=== PATIENT | male | born 1970 | race Caucasian/White ===

== ENCOUNTER 2025-01-29 01:29 | Day surgery (SDC) | payer OTHER, SELFPAY ==
[2024-08-12 08:32] VITALS: BMI 41.8
--- NOTE | 2024-08-30 12:56 | SUR.PREOP ---
Pt called to cancel his procedure on 09/01 due to provider availability. Pt rescheduled to 01/29 at 730.
--- OUTSIDE RECORDS SUMMARY | 2025-01-29 01:32 | XMS_ITS | Referral Summary ---
Author Organization [facility] Address [address] [place] [address] Care Team Providers Care Feed Research Technician Name Role Phone Dustin Gonsalez MD Primary Care Provider Eloy Estrella DPM Unavailable [phone] Encounters Date Type Department Care Team Description 11/17/2024 Telephone [facility] Diabetes [facility] Endocrinology [address] [place] [phone] Maritza Prajapati NP Prior Auth (Freestyle Sandy 3 Plus Sensor) 11/13/2024 Orders Only [facility] [address] [place] [phone] ProviderSharon MD 11/13/2024 9:00 AM CDT Office Visit [facility] [address] [place] [phone] Maritza Prajapati NP Type 2 diabetes mellitus with hyperglycemia, without long-term current use of insulin (HCC) (Primary Dx); Hypertension associated with diabetes (HCC); Hyperlipidemia associated with type 2 diabetes mellitus (HCC); Class 3 severe obesity due to excess calories with serious comorbidity and body mass index (BMI) of 40.0 to 44.9 in adult (HCC) from Last 3 Months Allergies Active Allergy Reactions Criticality Noted Date Comments Penicillin G Penicillins Rash Medium 03/10/2019 Medications aspirin 81 mg chewable tablet chew 1 tablet by oral route every day 0 0 3 Active blood glucose diagnostic (ACCU-CHEK SMARTVIEW TEST STRIP) strip test 1 by finger stick BS route before meals one time 360 1 3 Active lancets (ACCU-CHEK MULTICLIX LANCET) misc test blood sugars ac meals tid and hs 360 each 1 3 Active ketoconazole (NIZORAL) 2 % cream 3 Active metFORMIN XR (GLUCOPHAGE XR) 500 mg 24 hr tabletIndication s:Type 2 diabetes mellitus with hyperglycemia, without long-term current use of insulin ([facility]) Take 4 tablets (2,000 mg total) by mouth daily with breakfast 360 tablet 3 4 03/11/20 25 Active miconazole 2 % powder Active semaglutide (OZEMPIC) 1 mg/dose (4 mg/3 mL) pen injector injectionIndicat ions:type 2 diabetes mellitus Inject 1 mg under the skin every 7 days 9 mL 5 11/14/19 26 Active dapagliflozin propanediol (Farxiga) 10 mg tabletIndication s:type 2 diabetes mellitus Take 1 tablet (10 mg total) by mouth daily 90 tablet 3 5 11/14/19 26 Active glimepiride (AMARYL) 4 mg tabletIndication s:Type 2 diabetes mellitus with hyperglycemia, without long-term current use of insulin ([facility]) Take 1 tablet (4 mg total) by mouth daily before breakfast 90 tablet 3 5 11/14/19 26 Active FreeStyle Sandy 3 Plus Sensor deviceIndication s:Type 2 diabetes mellitus with hyperglycemia, without long-term current use of insulin ([facility]) Change sensors every 14 days 6 each 3 5 Active atorvastatin (LIPITOR) 40 mg tabletIndication s:Hyperlipidemia associated with type 2 diabetes mellitus (HCC) TAKE 1 TABLET DAILY 90 tablet 3 5 Active hydroCHLOROthiaz al (MICROZIDE) 12.5 mg capsuleIndicatio ns:Hypertension associated with diabetes (HCC) TAKE 1 CAPSULE DAILY 90 capsule 3 5 Active lisinopriL (PRINIVIL,ZESTRI L) 40 mg tabletIndication s:Hypertension associated with diabetes (HCC) TAKE 1 TABLET DAILY 90 tablet 3 5 Active Active Problems Problem Noted Date Diagnosed Date Morbid (severe) obesity due to excess calories 0 03/11/2024 Class 3 severe obesity due t o excess calories with serious comorbidity and body mass index (BMI) of 40.0 to 44.9 in adult 02/13/2023 Assessment & Plan (11/13/2024 9:30 AM CDT): Discussed healthy diet and importance of regular physical activity (20- 30min/day, 150min/wk). 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 Currently taking ozempic 1mg weekly. Assessment & Plan (03/11/2024 11:45 AM CDT): Discussed healthy diet and importance of regular physical activity (20- 30min/day, 150min/wk). 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 Ozempic increased from 0.5mg to 1mg weekly. Assessment & Plan (02/13/2023 2:33 PM CDT): Discussed healthy diet and importance of regular physical activity (20- 30min/day, 150min/wk). 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 Hyperlipidemia associated with type 2 diabetes alisson salgado 03/10/2019 Assessment & Plan (11/13/2024 9:09 AM CDT): Chronic problem. Controlled on current Atorvastatin 40mg. Last lipid panel: 03/11/24 LDL=76, QK=923. Assessment & Plan (07/16/2024 9:03 AM SIGHTSEEING GUIDE): Chronic problem. Controlled on current Atorvastatin 40mg. Last lipid panel: 03/11/24 LDL=76, DY=046. Assessment & Plan (03/11/2024 11:24 AM CDT): Chronic problem. Controlled on current Atorvastatin 40mg. Last lipid panel: 02/13/23 NIR=644, CI=026. Will update labs today. Verified that he uses mychart. Aware to check results/results letter in [employer]. Will contact by phone if needed. Assessment & Plan (06/18/2023 10:18 AM CDT): Chronic problem. Controlled on current Atorvastatin 40mg. Last lipid panel: 02/13/23 XII=815, TO=009. Assessment & Plan (02/13/2023 2:16 PM CDT): Chronic problem. Controlled on current Atorvastatin 40mg. Last lipid panel: 11/23/21 LDL=72, TG=84. Will update labs today. Verified that he uses mychart. Aware to check results/results letter in [employer]. Will contact by phone if needed. Assessment & Plan (05/29/2022 3:12 PM CDT): Chronic, well controlled Low fat Low cholesterol diet Exercise Continue statin therapy with Atorvastastin Assessment & Plan (11/23/2021 9:56 AM CDT): Chronic problem. On statin therapy, no changes. Update lipid panel. Assessment & Plan (02/21/2021 3:28 PM CDT): Goal of treatment , LDL cholesterol less than 100 ( less than 70 in patients with history of heart attacks and / or strokes ) NonHDL cholesterol ( total cholesterol minus HDL cholesterol ) goal less than 130 ( less than 100 in patients with history of heart attacks and / or strokes ) Low cholesterol, low fat diet was discussed and advised. Daily exercise On statin therapy with Atorvastatin Assessment & Plan (08/04/2020 5:26 PM SIGHTSEEING GUIDE): Goal of treatment , LDL cholesterol less than 100 ( less than 70 in patients with history of heart attacks and / or strokes ) NonHDL cholesterol ( total cholesterol minus HDL cholesterol ) goal less than 130 ( less than 100 in patients with history of heart attacks and / or strokes ) Low cholesterol, low fat diet was discussed and advised. Daily exercise On statin therapy with Lipitor Assessment & Plan (09/15/2019 9:56 AM SIGHTSEEING GUIDE): Goal of treatment , LDL cholesterol less than 100 ( less than 70 in patients with history of heart attacks and / or strokes ) NonHDL cholesterol ( total cholesterol minus HDL cholesterol ) goal less than 130 ( less than 100 in patients with history of heart attacks and / or strokes ) Low cholesterol, low fat diet was discussed and advised. Daily exercise On statin therapy with Lipitor Assessment & Plan (03/10/2019 9:37 AM CDT): Goal of treatment , LDL cholesterol less than 100 ( less than 70 in patients with history of heart attacks and / or strokes ) NonHDL cholesterol ( total cholesterol minus HDL cholesterol ) goal less than 130 ( less than 100 in patients with history of heart attacks and / or strokes ) Low cholesterol, low fat diet was discussed and advised. Daily exercise On statin therapy Hypertension associated with diabetes 05/16/2017 Assessment & Plan (11/13/2024 9:09 AM CDT): Chronic problem. Controlled on current Lisinopril 40mg daily Assessment & Plan (07/16/2024 9:02 AM SIGHTSEEING GUIDE): Chronic problem. Controlled on current Lisinopril 40mg daily and HCTZ 12.5mg daily Assessment & Plan (03/11/2024 11:24 AM CDT): Chronic problem. Controlled on current Lisinopril 40mg daily and HCTZ 12.5mg daily Will update labs today. Verified that he uses [employer]. Aware to check results/results letter in [employer]. Will contact by phone if needed. Assessment & Plan (06/18/2023 10:17 AM CDT): Chronic problem. Controlled on current Lisinopril 40mg daily and HCTZ 12.5mg daily No changes at this time. Assessment & Plan (02/13/2023 2:15 PM CDT): Chronic problem. Controlled on current Lisinopril 40mg daily and HCTZ 12.5mg daily No changes at this time. Will update labs today. Verified that he uses [employer]. Aware to check results/results letter in [employer]. Will contact by phone if needed. Assessment & Plan (05/29/2022 3:12 PM CDT): Chronic, well controlled Importance of low salt diet and exercise were discussed Continue current meds Assessment & Plan (11/23/2021 9:56 AM CDT): Controlled on current medications, no changes. Assessment & Plan (02/21/2021 3:28 PM CDT): Goal blood pressure is less than 140/85 Low salt diet was discussed andd recommended The importance of daily aerobic exercise was also emphasized. Continue current meds, including DUNCAN-I or ARB, e.g. Lisinopril Assessment & Plan (08/04/2020 5:26 PM SIGHTSEEING GUIDE): Goal blood pressure is less than 140/85 Low salt diet was discussed andd recommended The importance of daily aerobic exercise was also emphasized. Continue current meds, including DUNCAN-I or ARB, e.g. Lisinopril Check microalbumin Assessment & Plan (09/15/2019 9:56 AM SIGHTSEEING GUIDE): Goal blood pressure is less than 140/85 Low salt diet recommended Daily aerobic exercise Continue current meds, including DUNCAN-I or ARB with Lisinopril. Assessment & Plan (03/10/2019 9:49 AM CDT): Goal blood pressure is less than 140/85 Low salt diet recommended Daily aerobic exercise Check microalbumin Consider restarting Lisinopril. Assessment & Plan (10/31/2017 3:22 PM SIGHTSEEING GUIDE): Goal blood pressure is less than 140/85 Low salt diet recommended Daily aerobic exercise Continue current meds, including DUNCAN-I or ARB Check microalbumin Assessment & Plan (05/16/2017 10:02 AM CDT): Controlled on current medications. Type 2 diabetes mellitus with hyperglycemia 02/24 Overview (11/29/2016): DMII WO CMP UNCNTRLD Assessment & Plan (11/13/2024 9:10 AM CDT): Chronic problem. A1c at goal and remained stable at 6.1%. Current medications: Metformin XR 2000mg with breakfast Glimepiride 4mg with breakfast Farxiga 10mg daily Ozempic 1 mg weekly UTD on labs. UTD on DM eye exam (01/31/24 no DMR) Strive for regular exercise (30min most days) and diet (get at least 4-5 servings of fruit and veggies daily, avoid processed foods, increase lean protein intake and decrease carb portions as well as fruit juices, regular soda & desserts). Watch carbs and simple sugars. Check the feet daily for skin breakdown and infection. Assessment & Plan (07/16/2024 9:18 AM SIGHTSEEING GUIDE): Chronic problem. A1c at goal and improved from 7.3% 03/11/24 to now 6.1%. Current medications: Metformin XR 2000mg with breakfast Glimepiride 4mg with breakfast Farxiga 10mg daily Ozempic 1 mg weekly UTD on labs. UTD on DM eye exam (01/31/24 no DMR) Strive for regular exercise (30min most days) and diet (get at least 4-5 servings of fruit and veggies daily, avoid processed foods, increase lean protein intake and decrease carb portions as well as fruit juices, regular soda & desserts). Watch carbs and simple sugars. Check the feet daily for skin breakdown and infection. Assessment & Plan (03/11/2024 11:44 AM CDT): Chronic problem. Not at goal but A1c remains stable at 7.3%. has been missing evening dose of metformin frequently this summer. -Ozempic increased to 1mg weekly. Aware to watch blood sugars... may need to cut glimepiride from 4mg to 2mg if noting low blood sugars after taking. If still low blood sugars--stop glimepiride altogether. -Will switch Metformin to XR. Take 4 tabs every morning; none in evening. Current medications: Metformin XR 2000mg with breakfast Glimepiride 4mg with breakfast Farxiga 10mg daily Ozempic 1 mg weekly Will update labs today. Verified that he uses mychart. Aware to check results/results letter in [employer]. Will contact by phone if needed. UTD on DM eye exam (01/31/24 no DMR) Strive for regular exercise (30min most days) and diet (get at least 4-5 servings of fruit and veggies daily, avoid processed foods, increase lean protein intake and decrease carb portions as well as fruit juices, regular soda & desserts). Watch carbs and simple sugars. Check the feet daily for skin breakdown and infection. Assessment & Plan (06/18/2023 10:48 AM CDT): Chronic problem. Not at goal &but A1c improved from 7.4% 02/13/23 to now 7.2%. Mounjaro 2.5mg sample given in place of the Trulicity (next injection next Saturday). Mounjaro 5mg sent into the pharmacy. Reviewed med SE & scheduling. Current medications: Metformin 1000mg twice daily with meals Glimepiride 4mg with breakfast Farxiga 10mg daily Mounjaro 2.5mg weekly x 4 weeks then increase to 5mg weekly. Freestyle sandy applied today. UTD on labs UTD on DM eye exam. 12/2022 at [facility] in . Letter sent to get copy of report. Strive for regular exercise (30min most days) and diet (get at least 4-5 servings of fruit and veggies daily, avoid processed foods, increase lean protein intake and decrease carb portions as well as fruit juices, regular soda & desserts). Watch carbs and simple sugars. Check the feet daily for skin breakdown and infection. Assessment & Plan (02/13/2023 2:38 PM CDT): Chronic problem. Not at goal & worsening. A1c today is 7.4%; was 6.9% 05/29/22. Current medications: Metformin 1000mg twice daily with meals Glimepiride 4mg with breakfast Farxiga 10mg daily Trulicity 4.5mg weekly Will update labs. Verified that he uses mychart. Aware to check results/results letter in [employer]. Will contact by phone if needed. Will call to schedule yearly eye exam. Strive for regular exercise (30min most days) and diet (get at least 4-5 servings of fruit and veggies daily, avoid processed foods, increase lean protein intake and decrease carb portions as well as fruit juices, regular soda & desserts). Watch carbs and simple sugars. Check the feet daily for skin breakdown and infection. Assessment & Plan (05/29/2022 3:11 PM CDT): Hba1c was Lab Results Component Value Date HGBA1C 6.9 05/29/2022 today, indicating adequate DM control Goal Hba1c and blood glucose explained Diet and exercise were advised Prevention and treatment of hyypoglcyemia were discussed with the patient Blood glucose monitoring : 1-2 x day Adjustment to medications: Continue current Assessment & Plan (11/23/2021 9:58 AM CDT): Chronic problem, higher sugars with being off SGLT2i but now back on it and have improved. He'll work on limiting ice cream. Also discussed that hypogonadism is often related to obesity and DM, and working on weight loss will help with testosterone level as well. Update routine labs today. Assessment & Plan (02/21/2021 3:28 PM CDT): Hba1c was Lab Results Component Value Date HGBA1C 6.5 02/21/2021 today, indicating Adequate ... DM control Goal blood sugars in the 120-150 range , with Hb1c under 7.0 % was explained 1800 calorie, consistent carb diet recommended. No more than 30-45 grams of carbs per meal recommended, as well as avoiding high concentrated sweet drinks . 25-45 min daily exercise, combining both aerobic and resistance exercise recommended. Prevention and treatment of hyypoglcyemia discussed. Continue current regimen with Trulicity, Invokana, Metformin and Glimepiride Assessment & Plan (08/04/2020 5:25 PM SIGHTSEEING GUIDE): Hba1c was Lab Results Component Value Date HGBA1C 7.0 08/04/2020 today, indicating adequate DM control Goals blood sugars of 120-160 and Hba1c under 7 % was explained. 1800 calorie, consistent carb diet recommended, no more than 3-45 grams of carbs per meal, avoiding concentrated sweet drinks and rapid absorption carbs. 25-45 min daily aerobic and resistance exercise recommended Prevention and treatment of hyypoglcyemia discussed. Blood glucose monitoring with fingers sticks. Increase Trulicity to 3 mg week Assessment & Plan (09/15/2019 9:55 AM SIGHTSEEING GUIDE): Hba1c was Lab Results Component Value Date HGBA1C 6.2 09/15/2019 today, indicating adequate DM control 1800 calorie, consistent carb diet recommended, no more than 3-45 grams of carbs per meal, avoiding concentrated sweet drinks and rapid absorption carbs. 25-45 min daily aerobic and resistance exercise recommended Prevention and treatment of hyypoglcyemia discussed. Medications: lower Glimeperide to 4 mg once a day Assessment & Plan (03/10/2019 9:48 AM CDT): Hba1c was Lab Results Component Value Date HGBA1C 7.1 % 03/10/2019 today, indicating adequate DM control 1800 calorie, consistent carb diet recommended 25-45 min daily exercise, combining both aerobic and resistance exercise recommended. The need to monitor blood glucose before meals and bedtime was discussed. Continue Invokana and Trulicity, as well as Metformin and Glimepiride. Prevention and treatment of hyypoglcyemia discussed. Assessment & Plan (10/31/2017 3:21 PM SIGHTSEEING GUIDE): Hba1c was Lab Results Component Value Date HGBA1C 6.6 10/31/2017 today, indicating Adequate DM control 1800 calorie, consistent carb diet recommended 30 min daily aerobic and resistance exercise recommended Prevention and treatment of hyypoglcyemia discussed. Blood glucose monitoring with fingers sticks 1-2 x day . Assessment & Plan (05/16/2017 10:02 AM CDT): A1c improved to 6.8. Restart Invokana. Continue to focus on reducing calories and increasing activity. Concept of insulin resistance discussed. Assessment & Plan (02/07/2017 9:37 AM CDT): Hba1c was 7.8 today, indicating inadequate DM control Increase Trulicy to 1.5 1500 calorie, consistent carb diet recommended 30 min daily aerobic and resistance exercise . Foot care discussed. Prevention and treatment of hypoglycemia was discussed. Resolved Problems Problem Noted Date Diagnosed Date Resolved Date Body mass index 40.0-44.9, adult ([facility]) 03/11/2024 03/11/2024 Morbid (severe) obesity due to excess calories 05/29/2022 02/13/2023 Body mass index (BMI) 45.0-49.9, adult 05/29/2022 02/13/2023 BMI 45.0-49.9, adult 02/07/2017 023 Assessment & Plan (11/23/2021 9:59 AM CDT): Healthy diet and regular exercise. Assessment & Plan (05/16/2017 10:04 AM CDT): Importance of following diet and exercising discussed. Morbid obesity due to excess calories 02/07/2017 02/13/2023 Assessment & Plan (02/07/2017 9:43 AM CDT): Diet and exercise Were discussed Mixed hyperlipidemia 02/07/2017 023 Assessment & Plan (05/16/2017 10:03 AM CDT): At goal on current medications. Assessment & Plan (02/07/2017 9:44 AM CDT): Goal of treatment , LDL cholesterol less than 100 ( less than 70 in patients with history of heart attacks and / or strokes ) NonHDL cholesterol goal less than 130 / 100 Check lipids. Continue statin therapy Low cholesterol diet, exercise advised. Social History Tobacco Use Types Packs/Day Years Used Date Smoking Tobacco: Former Smokeless Tobacco: Current Chew Alcohol Use Standard Drinks/Week Comments Yes 0 (1 standard drink = 0.6 oz pur e alcohol) PHQ-2 Answer Date Recorded PHQ-2 Total Score (If total score is 3 or more points, staff should administer the PHQ-9) 0 05/29/2022 Sex and Gender Information Value Date Recorded Sex Assigned at Not on file Legal Sex Male 11:59 PM SIGHTSEEING GUIDE Gender Identity Male 07/20/2020 1:19 PM SIGHTSEEING GUIDE Sexual Orientation Straight 07/20/2020 1: 19 PM SIGHTSEEING GUIDE Last Filed Vital Signs Vital Sign Reading Time Taken Comments Blood Pressure 102/70 11/13/2024 8:49 AM CDT Pulse 72 11/13/2024 8:49 AM CDT Temperature - - Respiratory Rate 18 11/13/2024 8:49 AM CDT Oxygen Saturation - - Inhaled Oxygen Concentration - - Weight 133.8 kg (295 lb) 11/13/2024 8:49 AM CDT Height 180 cm (5' 10.87) 11/13/2024 8:49 AM CDT Body Mass Index 41.3 11/13/2024 8:49 AM CDT Plan of Treatment Not on file Procedures Procedure Name Priority Date/Time Associated Diagnosis Comments POCT GLUCOSE Routine 11/13/2024 8:50 AM CDT Type 2 diabetes mellitus with hyperglycemia, without long-term current use of insulin (HCC) POCT HEMOGLOBIN A1C Routine 11/13/2024 8 :50 AM CDT Type 2 diabetes mellitus with hyperglycemia, without long-term current use of insulin (HCC) COMPREHENSIVE METABOLIC PANEL Routine 10/08/2024 LIPID PANEL Routine 10/08/2024 ALBUMIN CREATININE RATIO, URINE Routine 03/11/2024 11:50 AM CDT Type 2 diabetes mellitus with hyperglycemia, without long-term current use of insulin (HCC) HM DIABETES EYE EXAM Routine 01/31/2024 8:06 AM CDT PSA SCREEN Routine 11/11/2017 3:42 PM CDT from Last 3 Months or Most Recently Relevant to Health Maintenance Results * (ABNORMAL) POCT hemoglobin A1c (11/13/2024 8:50 AM CDT) Hemoglobin A1C, POC 6.1 4.0 - 5.6 % Blood 11/13/2024 8:50 AM CDT us Maritza Prajapati COORDINATOR OF HEALTH SERVICES POINT OF CARE TEST ORDERA BLES Final Result * POCT glucose (11/13/2024 8:50 AM CDT) Glucose Blood, POC 110 mg/dL Blood 11/13/2024 8:50 AM CDT Maritza Prajapati NP POINT OF CARE TEST ORDERA BLES Final Result * Lipid panel (10/08/2024) SCRIBED Cholesterol, Total 116 <200 - NA EXTERNAL LAB SCRIBED HDL 41 >=40 - NA EXTERNAL LAB SCRIBED LDL 59 NA - NA EXTERNAL LAB SCRIBED Triglycerides 78 <150 - NA EXTERNAL LAB Blood 10/08/2024 Result [facility] Historical Provider LAB BLOOD ORDERABLES Edit ed Result - Final EXTERNAL LAB * (ABNORMAL) Comprehensive metabolic panel (10/08/2024) Pathologist [facility] [place] SCRIBED Sodium 140 135 - 146 mmol/L EXTERNAL LAB SCRIBED Potassium 4.5 3.5 - 5.3 mmol/L EXTERNAL LAB SCRIBED Urea Nitrogen (BUN) 16 7 - 25 mg/dl EXTERNAL LAB SCRIBED Creatinine 0.82 0.70 - 1.30 mg/dl EXTERNAL LAB SCRIBED Glucose 130(A) 65 - 99 mg/dl EXTERNAL LAB SCRIBED Calcium 9.3 8.6 - 10.3 mg/dl EXTERNAL LAB SCRIBED Bilirubin 0.6 0.2 - 1.2 mg/dl EXTERNAL LAB SCRIBED Alkaline Phosphatase 70 35 - 144 Units/L EXTERNAL LAB SCRIBED Alanine Transaminase (ALT) 17 9 - 46 Units/L EXTERNAL LAB SCRIBED Aspartate Transaminase (AST) 14 10 - 35 Units/L EXTERNAL LAB SCRIBED eGFR in NonAfrican Panamanian 105 >=60 - NA EXTERNAL LAB Blood 10/08/2024 Historical Provider LAB BLOOD ORDERABLES Edit ed Result - Final EXTERNAL LAB * Albumin Creatinine Ratio, Urine (03/11/2024 11:50 AM CDT) Albumin Ur 12.1 mg/L Comment: Interpretive Data No reference range established. Current interpretive data was last revised 2019. Creatinine Ur 179.4 mg/dL [facility] Comment: Interpretive Data No reference range established. Current interpretive data was last revised 2019. Albumin Creatinine Ratio, Ur 7 1 - 29 mg/g [facility] Urine 03/11/2024 11:5 0 AM CDT 03/11/2024 2:55 PM CDT Maritza Prajapati COORDINATOR OF HEALTH SERVICES LAB URINE ORDERABLES Emelia l Result Performing Organization Address City/[facility] Co de Phone Number [facility] [id number] [place] [address] * DIABETES EYE EXAM (01/31/2024 8:06 AM CDT) Historical Provider HEALTH MAINTENANCE Edited Result - Final * PSA screen (11/11/2017 3:42 PM CDT) SCRIBED PSA, Serum 0.90 0.00 - 4.00 EXTERNAL LAB Blood specimen (specimen) Historical Provider LAB BLOOD ORDERABLES Edit ed Result - Final Performing Organization Address City/State/[facility] Co de Phone Number EXTERNAL LAB from Last 3 Months or Most Recently Relevant to Health Maintenance Insurance [facility] HMO/PPO Address: [place] [id number] [place] [id number] [facility] HMO/PPO Address: [id number] [place] [address] Care Teams Feed Research Technician Relationship Specialty Start Date End Date Dustin Gonsalez MD PCP - General 03/18/13 Eloy Estrella DPM [id number] [place] [address] Podiatry 03/01/23
--- OUTSIDE RECORDS SUMMARY | 2025-01-29 01:32 | XMS_ITS | Clinical Summary ---
Author Organization [facility] Address [address] [place] [address] Care Team Providers Care Media Planner / Buyer Name Role Phone Dustin Gonsalez MD Primary Care Provider [phone] Source Comments [facility],non-owned Affiliates and Associated Physician Practices is amultiple site organization consisting of ambulatory clinics and hospital sitesin [place] and [place]. This disclosure is being madepursuant to the Care Everywhere program and may not contain all information available regarding this patient. Last updated 18.[facility] Allergies No known active allergies Medications * Be aware that medications may not be up to date on this document. Alwaysverify current medications with the patient. glimepiride (AMARYL) 4 MG tablet Take 4 mg by mouth daily with breakfast. Active metFORMIN (GLUCOPHAGE) 1000 MG tablet Take 1,000 mg by mouth 2 times daily with breakfast and dinner. Active atorvastatin (LIPITOR) 40 MG tablet Take 40 mg by mouth at bedtime. Active hydrochlorothia zide (MICROZIDE) 12.5 MG capsule Take 12.5 mg by mouth once daily. Active lisinopril (PRINIVIL; ZESTRIL) 40 MG tablet Take 40 mg by mouth once daily. Active vitamin D, ergocalciferol, (DRISDOL) 38966 UNIT capsuleIndicati ons:Vitamin d deficiency Take 1 Cap by mouth every 7 days. 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 Gender Identity Not on file Sexual Orientation Not on file Last Filed Vital Signs Vital Sign Reading Time Taken Comments Blood Pressure 151/89 03/01/2011 11:00 AM CDT Pulse 95 03/01/2011 11:00 AM CDT Temperature 36.6 C (97.8 F) 12/05/2009 2:48 PM CDT Respiratory Rate 20 03/01/2011 11:00 AM CDT Oxygen Saturation - - Inhaled Oxygen Concentration - - Weight 163.7 kg (361 lb) 12/06/2011 11:00 AM CDT Height 182.9 cm (6') 12/06/2011 11:00 AM CDT Body Mass Index 48.96 12/06/2011 11:00 AM CDT Plan of Treatment Health Maintenance Due Date Last Done Comments COLOGUARD (AGES 45-75) - COL ON CA SCREENING 1971 COLON MONITORING 1971 COLONOSCOPY - COLON CA SCREENING 1971 CT COLONOGRAPHY - COLON CA SCREENING 1971 Colorectal Cancer Screening 1971 FIT - COLON CA SCREENING 1971 FLEX SIG - COLON CA SCREENING 1971 HIV SCREENING 1986 HEPATITIS C SCREENING 05/19/1989 DTAP/TDAP/TD VACCINES (1 - Tdap) 1990 HEPATITIS B VACCINE (1 of 3 - 19+ 3-dose series) 1990 PNEUMOCOCCAL VACCINE 50+ (1 of 1 - PCV) 2021 ZOSTER VACCINE (1 of 2) 2021 COVID-19 VACCINE ( - 2023-2 5 season) 2024 DEPRESSION SCREENING 08/26/2024 INFLUENZA VACCINE (Season Ended) 2025 HIB VACCINE Aged Out No longer eligi ble based on patient's age to complete this topic HPV VACCINE Aged Out No longer eligi ble based on patient's age to complete this topic MENINGOCOCCAL (Group B) VACC INE SHARED DECISION-MAKING Aged Out No longer eligibl e based on patient's age to complete this topic MENINGOCOCCAL GROUPS A/C/Y/W VACCINE Aged Out No longer eligible b ased on patient's age to complete this topic Care Teams Media Planner / Buyer Relationship Specialty Start Date End Date Dustin Gonsalez MD [address] [place] [phone] PCP - General 07/26/08
--- OUTSIDE RECORDS SUMMARY | 2025-01-29 01:32 | XMS_ITS | Clinical Summary ---
Author Organization [facility] Address [address] [place] [address] Care Team Providers Care Psychology Clinician Name Role Phone Dustin Gonsalez MD Primary Care Provider Eloy Estrella DPM Unavailable Allergies Active Allergy Reactions Criticality Noted Date Comments Penicillin G Penicillins Rash Medium 03/10/2019 Medications aspirin 81 mg chewable tablet chew 1 tablet by oral route every day 0 0 3 Active blood glucose diagnostic (ACCU-CHEK SMARTVIEW TEST STRIP) strip test 1 by finger stick BS route before meals one time day 360 1 3 Active lancets (ACCU-CHEK MULTICLIX LANCET) misc test blood sugars ac meals tid and hs 360 each 1 3 Active ketoconazole (NIZORAL) 2 % cream 3 Active metFORMIN XR (GLUCOPHAGE XR) 500 mg 24 hr tabletIndication s:Type 2 diabetes mellitus with hyperglycemia, without long-term current use of insulin (HCC) Take 4 tablets (2,000 mg total) by mouth daily with breakfast 360 tablet 3 4 03/11/20 25 Active miconazole 2 % powder Active semaglutide (OZEMPIC) 1 mg/dose (4 mg/3 mL) pen injector injectionIndicat ions:type 2 diabetes mellitus Inject 1 mg under the skin every 7 days 9 mL 3 5 11/14/19 26 Active dapagliflozin propanediol (Farxiga) 10 mg tabletIndication s:type 2 diabetes mellitus Take 1 tablet (10 mg total) by mouth daily 90 tablet 3 5 11/14/19 26 Active glimepiride (AMARYL) 4 mg tabletIndication s:Type 2 diabetes mellitus with hyperglycemia, without long-term current use of insulin (HCC) Take 1 tablet (4 mg total) by mouth daily before breakfast 90 tablet 3 5 11/14/19 26 Active FreeStyle Sandy 3 Plus Sensor deviceIndication s:Type 2 diabetes mellitus with hyperglycemia, without long-term current use of insulin (HCC) Change sensors every 14 days 6 each [...] Atorvastatin 40mg. Last lipid panel: 03/11/24 LDL=76, QJ=821. Assessment & Plan (07/16/2024 9:03 AM CAMPUS ADMINISTRATIVE ASSISTANT): Chronic problem. Controlled on current Atorvastatin 40mg. Last lipid panel: 03/11/24 LDL=76, ES=441. Assessment & Plan (03/11/2024 11:24 AM CDT): Chronic problem. Controlled on current Atorvastatin 40mg. Last lipid panel: 02/13/23 PZM=511, SS=402. Will update labs today. Verified that he uses mychart. Aware to check results/results letter in [employer]. Will contact by phone if needed. Assessment & Plan (06/18/2023 10:18 AM CDT): Chronic problem. Controlled on current Atorvastatin 40mg. Last lipid panel: 02/13/23 JJO=595, LD=451. Assessment & Plan (02/13/2023 2:16 PM CDT): Chronic problem. Controlled on current Atorvastatin 40mg. Last lipid panel: 11/23/21 LDL=72, TG=84. Will update labs today. Verified that he uses mychart. Aware to check results/results letter in [employer]. Will contact by phone if needed. Assessment [...] Atorvastatin Assessment & Plan (08/04/2020 5:26 PM CAMPUS ADMINISTRATIVE ASSISTANT): Goal of treatment , LDL cholesterol less [...] Lipitor Assessment & Plan (09/15/2019 9:56 AM CAMPUS ADMINISTRATIVE ASSISTANT): Goal of treatment , LDL cholesterol less [...] daily Assessment & Plan (07/16/2024 9:02 AM CAMPUS ADMINISTRATIVE ASSISTANT): Chronic problem. Controlled on current Lisinopril 40mg daily and HCTZ 12.5mg daily Assessment & Plan (03/11/2024 11:24 AM CDT): Chronic problem. Controlled on current Lisinopril 40mg daily and HCTZ 12.5mg daily Will update labs today. Verified that he uses [employer]. Aware to check results/results letter in [employer]. Will contact by phone if needed. Assessment & Plan (06/18/2023 10:17 AM CDT): Chronic problem. Controlled on current Lisinopril 40mg daily and HCTZ 12.5mg daily No changes at this time. Assessment & Plan (02/13/2023 2:15 PM CDT): Chronic problem. Controlled on current Lisinopril 40mg daily and HCTZ 12.5mg daily No changes at this time. Will update labs today. Verified that he uses [employer]. Aware to check results/results letter in [employer]. Will contact by phone if needed. Assessment [...] Lisinopril Assessment & Plan (08/04/2020 5:26 PM CAMPUS ADMINISTRATIVE ASSISTANT): Goal blood pressure is less than 140/85 Low salt diet was discussed andd recommended The importance of daily aerobic exercise was also emphasized. Continue current meds, including DUNCAN-I or ARB, e.g. Lisinopril Check microalbumin Assessment & Plan (09/15/2019 9:56 AM CAMPUS ADMINISTRATIVE ASSISTANT): Goal blood pressure is less than 140/85 Low salt diet recommended Daily aerobic exercise Continue current meds, including DUNCAN-I or ARB with Lisinopril. Assessment & Plan (03/10/2019 9:49 AM CDT): Goal blood pressure is less than 140/85 Low salt diet recommended Daily aerobic exercise Check microalbumin Consider restarting Lisinopril. Assessment & Plan (10/31/2017 3:22 PM CAMPUS ADMINISTRATIVE ASSISTANT): Goal blood pressure is less than 140/85 [...] infection. Assessment & Plan (07/16/2024 9:18 AM CAMPUS ADMINISTRATIVE ASSISTANT): Chronic problem. A1c at goal and improved [...] update labs today. Verified that he uses [employer]. Aware to check results/results letter in [employer]. Will contact by phone if needed. UTD [...] [facility] . Letter sent to get copy [...] Will update labs. Verified that he uses [employer]. Aware to check results/results letter in [employer]. Will contact by phone if needed. Will [...] Glimepiride Assessment & Plan (08/04/2020 5:25 PM CAMPUS ADMINISTRATIVE ASSISTANT): Hba1c was Lab Results Component Value Date [...] week Assessment & Plan (09/15/2019 9:55 AM CAMPUS ADMINISTRATIVE ASSISTANT): Hba1c was Lab Results Component Value Date [...] discussed. Assessment & Plan (10/31/2017 3:21 PM CAMPUS ADMINISTRATIVE ASSISTANT): Hba1c was Lab Results Component Value Date [...] Resolved Date Body mass index 40.0-44.9, adult ([facility]) 03/11/2024 03/11/2024 Morbid (severe) obesity [...] statin therapy Low cholesterol diet, exercise advised. Encounters Date Type Department Care Team Description 11/17/2024 Telephone [facility] Diabetes and Endocrinology [address] [place] [address] [phone] Maritza Prajapati NP Prior Auth (PTS [employer] Sandy 3 Plus Sensor) 11/13/2024 9:00 AM CDT Office Visit [facility] Diabetes and Endocrinology [address] [place] [address] [phone] Maritza Prajapati NP Type 2 diabetes mellitus with hyperglycemia, without long-term current use of insulin (HCC) (Primary Dx); Hypertension associated with diabetes (HCC); Hyperlipidemia associated with type 2 diabetes mellitus (HCC); Class 3 severe obesity due to excess calories with serious comorbidity and body mass index (BMI) of 40.0 to 44.9 in adult (HCC) 11/13/2024 Orders Only [facility] Diabetes and Endocrinology [address] [place] [address] [phone] Provider, MD Sharon from Last 3 Months Surgical History Surgery Date Site/Laterality Comments OTHER SURGICAL HISTORY gastric banding HERNIA REPAIR Hernia repair TONSILLECTOMY Tonsillectomy VASECTOMY Vasectomy Medical History Medical History Date Comments Diabetes mellitus (HCC) Diabetes Hyperlipidemia Hyperlipidemia Hypertension Hypertension Hypogonadism male Family History Medical History Relation Name Comments Diabetes Other 1 Family history of Diabetes mellitus; Heart disease Other 2 Family history of Heart disease; Cancer Other 3 Family history of Cancer; Hyperlipidemia Other 4 Family histor y of Hyperlipidemia; Hypertension Other 5 Family history of Hypertension; Relation Name Status Comments Other 1 Other 2 Other 3 Other 4 Other 5 Social History Tobacco Use Types Packs/Day Years [...] on file Legal Sex Male 11:59 PM CAMPUS ADMINISTRATIVE ASSISTANT Gender Identity Male 07/20/2020 1:19 PM CAMPUS ADMINISTRATIVE ASSISTANT Sexual Orientation Straight 07/20/2020 1: 19 PM CAMPUS ADMINISTRATIVE ASSISTANT Obstetrics History Last Filed Vital Signs Vital Sign Reading [...] 11/13/2024 8:49 AM CDT Plan of Treatment Health Maintenance Due Date Last Done Comments Colon Cancer Screening-Colonoscopy 1971 Hepatitis C Screening 1971 DTaP/Tdap/Td Vaccine (1 - Tdap) 1982 Hepatitis B Screening 1989 Regular Well Visit/Exam 18-64 1989 Pneumococcal vaccine <65 (1 of 2 - PCV) 1990 Prostate Cancer Screening-PSA 11/12/2019 11/11/2017 Zoster Vaccine (1 of 2) 2021 Depression Screening 05/29/2023 05/29/2022, 11/23/2021, 02/21/2021, Additional history exists Covid-19 Vaccine (4 - 2023-2 5 season) 2024 07/07/2021, 10/25/2020, 09/22/2020 Albumin Creatinine Ratio, Urine 03/11/2025 03/11/2024, 02/13/2023, 11/23/2021, Additional history exists Foot Exam 03/11/2025 03/11/2024, 01/25, 11/23/2021, Additional history exists Influenza Vaccine (Season Ended) 2025 09/10/2022, 07/07/2021, 06/09/2020, Additional history exists Hemoglobin A1C 05/16/2025 11/13/2024, 09/26, 07/16/2024, Additional history exists Lipid Panel 10/08/2025 10/08/2024, 02/23, 02/13/2023, Additional history exists eGFR 10/08/2025 10/08/2024, 02/23, 02/13/2023, Additional history exists Dilated Eye Exam 01/30/2026 01/31/2024, , 02/01/2021, Additional history exists Procedures Procedure Name Priority Date/Time Associated Diagnosis [...] 11/13/2024 8:50 AM CDT us Maritza Prajapati DENTAL CERAMIST ASSISTANT POINT OF CARE TEST ORDERA BLES Final Result * POCT glucose (11/13/2024 8:50 AM CDT) Glucose Blood, POC 110 mg/dL Blood 11/13/2024 8:50 AM CDT Maritza Prajapati DENTAL CERAMIST ASSISTANT POINT OF CARE TEST ORDERA BLES Final Result * Lipid panel (10/08/2024) SCRIBED Cholesterol, Total 116 <200 - NA EXTERNAL LAB SCRIBED HDL 41 >=40 - NA EXTERNAL LAB SCRIBED LDL 59 NA - NA EXTERNAL LAB SCRIBED Triglycerides 78 <150 - NA EXTERNAL LAB Blood 10/08/2024 Historical Provider LAB BLOOD ORDERABLES Edit ed Result - Final EXTERNAL LAB * (ABNORMAL) Comprehensive metabolic panel (10/08/2024) SCRIBED Sodium 140 135 - 146 mmol/L [...] Units/L EXTERNAL LAB SCRIBED eGFR in NonAfrican Belgian 105 >=60 - NA EXTERNAL LAB Blood 10/08/2024 Historical Provider LAB BLOOD ORDERABLES Edit ed Result - Final EXTERNAL LAB * Albumin Creatinine Ratio, Urine (03/11/2024 11:50 AM CDT) Albumin Ur 12.1 mg/L Comment: Interpretive Data No reference range established. Current interpretive data was last revised 2019. Creatinine Ur 179.4 mg/dL [facility] Comment: Interpretive Data No reference range established. Current interpretive data was last revised 2019. Albumin Creatinine Ratio, Ur 7 1 - 29 mg/g [facility] Urine 03/11/2024 11:5 0 AM CDT 03/11/2024 2:55 PM CDT Maritza Prajapati DENTAL CERAMIST ASSISTANT LAB URINE ORDERABLES Emelia l Result Performing Organization Address [facility] Co de Phone Number [facility] [id number] [place] [address] * DIABETES EYE EXAM (01/31/2024 8:06 AM CDT) Historical Provider HEALTH MAINTENANCE Edited Result - Final * PSA screen (11/11/2017 3:42 PM CDT) SCRIBED PSA, Serum 0.90 0.00 - 4.00 EXTERNAL LAB Blood specimen (specimen) Historical Provider LAB BLOOD ORDERABLES Edit ed Result - Final Performing Organization Address City/State/[facility] Co de Phone Number EXTERNAL LAB from Last 3 Months or Most Recently Relevant to Health Maintenance Insurance [facility] [employer] [facility] HMO/PPO Address: [place] [address] [facility] [employer] [facility] H[facility]/PPO Address: [place] [address] Care Teams Psychology Clinician Relationship Specialty Start Date End Date Dustin Gonsalez MD PCP - General 03/18/13 Eloy Estrella DPM [address] [place] [address] Podiatry 03/01/23
--- OUTSIDE RECORDS SUMMARY | 2025-01-29 01:32 | XMS_ITS | Data Portability ---
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 Quill Machine Tender variances may occur. Despite proofreading, typographical errors may occur. Not available 04/02/2023 09:25:05 07/02/2023 07/02/2023 This note is dictated and transcribed by [employer]. Quill Machine Tender variances may occur. Despite proofreading, typographical errors may occur. Not available 07/02/2023 09:32:12 Plan of Treatment Reminders Order Date Submit Date Provider Last Modified By Organization Details Last Modified Time Details Appointments None recorded. Lab HbA1c (hemoglobin A1c), blood 2024 025 [facility] Outpatient Lab, [address] [place], [address], 5 03:56:48 lipid panel, serum 2024 025 [facility] Outpatient Lab, [address] [place], [address], 5 03:56:42 CMP, serum or plasma 2024 025 [facility] Outpatient Lab, [address] [place], [address], 5 03:56:43 TSH, serum or plasma 2024 025 [facility] Outpatient Lab, [address] [place], [address], 5 03:56:47 T4, free, serum 2024 025 [facility] Out[facility] Lab, [address] [place], [address], 5 03:56:46 CBC w/ auto diff 2024 025 [facility] Outpatient Lab, [address] [place], [address], 5 03:56:44 lipid panel, serum [id number] [place] [address] Outpatient Lab, [address] [place], [address], 4 17:36:30 CMP, serum or plasma [id number] [place] [address] Outpatient Lab, [address] [place] [address], [address], 4 17:36:30 PSA, serum or plasma [id number] [place] [address] Outpatient Lab, [address] [place], [address], 4 17:36:30 HbA1c (hemoglobin A1c), blood [id number] [place] [address] Outpatient Lab, [address] [place], [address], 4 12:19:22 microalbumi n/creatinin e, mass ratio, urine [id number] [place] [address] Outpatient Lab, [address] [place], [address], 4 12:19:23 lipid panel, serum [id number] [place] [address] Outpatient Lab, [address] [place], [address], 4 12:19:22 CMP, serum or plasma [id number] [place] [address] Outpatient Lab, [address] [place], [address], 4 12:19:22 T4, free, serum [id number] [place] [address] Outpatient Lab, [address] [place], [address], 4 12:19:22 TSH, serum or plasma [id number] [place] [address] Outpatient Lab, [address] [place], [address], 4 12:19:22 PSA, serum or plasma [id number] [place] [address] Outpatient Lab, [address] [place], [address], 4 12:19:23 CBC w/ auto diff [email or web address] Outpatient Lab, [address] [place], [address], 4 12:19:21 Referral None recorded. Procedures None recorded. Surgeries None recorded. Imaging None recorded. Medication Orders Antifungal (miconazole ) 2 % topical powder 2022 023 [id number], [address], [place], [place], [id number], 3 09:28:55 terbinafine HCl 250 mg tablet [address] [facility], [address], [id number], 5 10:28:35 ketoconazol e 2 % topical cream 2022 023 [facility], [address], [place], [place], [id number], 3 09:26:20 Patient TargetsNo targets recorded. Patient Instructions Encounter Date Encounter Id Patient Instructions Last Modified By Organization Details Last Modified Time 10/07/2023 [id number] Central hypertension-hyperl ipidemia- type 2 diabetes clinically stable. Will continue on current medications check blood work consisting of CBC, CMP, lipid, thyroid PSA, hemoglobin A1c and microalbumin. Continue on current Rx follow-up in six months Portions of the record may have been created with voice recognition software. Occasional wrong-word or s ound-a-like substitutions may have occurred due to the inherent limitations of voice recognition software. Read the chart carefully and recognize, using context, where substitutions have occurred. [email or web address] Not available 10/07/2023 16:15:03 04/06/2024 [id number] risk assessment* [email or web address] Not availabl e 04/06/2024 16:28:11 INFLUENZA VACCIN E Recommended today, but patient declined Ordered Pa nallelynt will get at local pharmacy/health department Patient has egg allergy Next vaccination to be given fall Next vaccination to be given fall _2023___ TD/TDAP Patient will get at local pharmacy/health department PNEUMONIA VACCINE Recommended at age 66 SHINGLES Patient will get at local pharmacy/health department PSA Ordered No screening necessary patient is up to date Not indicated until age 50 recommended COLORECTAL SCREENING Recommended today, but patient declined Ordered Co lonoscopy declined. Cologuard ordered No screening necessary until age 45 No screening necessary patient is up to date Recommended today DEPRESSION SCREENING Negative BMI Overweight try to lose 10% of your body weight NUTRITION Heart Healthy Diet Recommendation of a 1500 caloric intake for weight loss is advised Diabetic Diet Renal Diet DASH Diet Continue healthy eating & exercise Eat Heart Healthy Diet PHYSICAL ACTIVITY Need more exercise/physical activity ALCOHOL USE Occasional/Social Use TOBACCO USE non smoker LUNG CANCER SCREENING Non Smoker-not indicated SEXUALLY ACTIVE HEPATITIS C SCREENING Not indicated GLUCOSE SCREENING Ordered Not needed Known Diabetic recommende d LIPID SCREENING Ordered Not needed Diagnosis of Hyperlipidemia saul mmended [email or web address] Not available 04/06/2024 16:13:07 Wellness evaluat ion risk assessment stable. Follow-up for essential hypertension, hyperlipidemia, type 2 diabetes and morbid obesity. Clinically stable. Will continue on current medications at this juncture. No interval complaints any new problems. Will check a PSA, lipid and CMP. Will also set up for colonoscopy. Continue on current Rx and follow-up in six months. Additional Orders - Directives - Recommendations 1. PSA 0.68 NG/ML N 2. Colonoscopy Next Appointment: 6 Months Approximate Date: 10/03/2024 Portions of the record may have been created with voice recognition software. Occasional wrong-word or s ound-a-like substitutions may have occurred due to the inherent limitations of voice recognition software. Read the chart carefully and recognize, using context, where substitutions have occurred. [email or web address] Not available 04/06/2024 16:27:57 10/05/2024 [id number] Follow-up for hypertension, hyperlipidemia, type 2 diabetes and morbid obesity. Plan to check blood work consisting of CBC, CMP, lipid, thyroid, hemoglobin A1c. Already scheduled for colonoscopy follow-up. Continue on current Rx follow-up in six months Additional Orders - Directives - Recommendations 1. Colonoscopy Already scheduled for January Follow Up: 6 Months Approximate Date: 04/03/2025 Portions of record are template driven. When necessary additional context will be provided. Additionally some portions have been created with voice recognition software. Occasional wrong-word or s ound-a-like substitutions may have occurred due to the inherent limitations of voice recognition software. Read the chart carefully and recognize, using context, where substitutions may have occurred. Created: Dustin Gonsalez M.D. 10.05.2024 09:40 AM [email or web address] Not available 10/05/2024 10:40:27 Reason for Referral None Reported. Results Created Date Observation Date Name Description Value Unit Range Abnormal Flag Note LastModifiedBy Organization Detail LastModifiedTime 07/01/2007/01/2023 HEPAT IC/LI FRANCISCO PANEL alkaline phosphatase 60 U/L 38-126 Not Available [facility] (Lab) [address] [place], [address], 07/01/2023 18:27:35 07/01/2007/01/2023 HEPAT IC/LI FRANCISCO PANEL alanine aminotransfe rase 24 U/L 0-50 Not Available [facility] (Lab) [address] [place], [address], 07/01/2023 18:27:35 07/01/20 23 07/01/2023 HEPAT IC/LI FRANCISCO PANEL aspartate aminotransfe rase 26 U/L 15-46 Not Available [facility] (Lab) [address] [place], [address], 07/01/2023 18:27:35 07/01/20 23 07/01/2023 HEPAT IC/LI FRANCISCO PANEL bilirubin, total 0.60 mg/dL 0.20-1 .30 Not Available [facility] (Lab) [address] [place], [address], 07/01/2023 18:27:35 07/01/20 23 07/01/2023 HEPAT IC/LI FRANCISCO PANEL bilirubin, conjugated (direct) 0.00 mg/dL 0.00-0 .30 Not Available [facility] (Lab) [address] [place], [address], 07/01/2023 18:27:35 07/01/20 23 07/01/2023 HEPAT IC/LI FRANCISCO PANEL biliurubin,u ncong. (indirect) 0.30 mg/dL 0.00-1 .1 Not Available [facility] (Lab) [address] [place], [address], 07/01/2023 18:27:35 07/01/20 23 07/01/2023 HEPAT IC/LI FRANCISCO PANEL total protein 6.7 g/dL 6.3-8. 2 Not Available [facility] (Lab) [address] [place], [address], 07/01/2023 18:27:35 07/01/20 23 07/01/2023 HEPAT IC/LI FRANCISCO PANEL albumin 4.1 g/dL 3.4-5. 0 Not Available [facility] (Lab) [address] [place], [address], 07/01/2023 18:27:35 07/01/20 23 07/01/2023 HEPAT IC/LI FRANCISCO PANEL globulin 2.6 g/dL 2.6-4. 2 Not Available [facility] (Lab) [address] [place], [address], 07/01/2023 18:27:35 07/01/20 23 07/01/2023 HEPAT IC/LI FRANCISCO PANEL A/G ratio 1.6 ratio 1.0-2. 0 Not Available [facility] (Lab) [address] [place], [address], 07/01/2023 18:27:35 04/20/20 24 04/20/2024 PSA, TOTAL PSA, total 0.90 NG/mL 0.00-4 .00 Not Available [facility] (Lab) [address] [place], [address], 04/20/2024 17:36:32 10/08/19 25 10/09/2024 LIPID PANEL , STAND THAI cholesterol, total 116 mg/dL <200 normal Not Available [facility] [address] [place], [address], 10/09/2024 03:56:41 10/08/19 25 10/09/2024 LIPID PANEL , STAND THAI HDL cholesterol 41 mg/dL > or = 40 normal Not Available [facility] [place] [address] [place], [address], 10/09/2024 03:56:41 10/08/19 25 10/09/2024 LIPID PANEL , STAND THAI triglyceride s 78 mg/dL <150 normal Not Available [facility] [place] [address] [place], [address], 10/09/2024 03:56:41 10/08/19 25 10/09/2024 LIPID PANEL , STAND THAI LDL-choleste rol 59 mg/dL _(aristeo c) normal Refer ence range : <100 Chloe able range <100 mg/dL for prima ry preve ntion ; <70 mg/dL for patie nts with CHD or diabe tic patie nts with > or = 2 CHD risk facto rs. LDL-C is now calcu lated using the Rand n-Hop kins calcu gabrielle n, which is a valid ated novel metho d provi ding michael r accur acy than the Fried nenita equat ion in the estim ation of LDL-C . Rand geller SS et al. AUR[place]A. 2013; 310(1 9): 2061- 2068 (http ://ed ucati on.DFMSim ayahCommerce Resources. com/f aq/FA Q164) Not Available [facility] [address] [place], [address], 10/09/2024 03:56:41 10/08/1910/09/2024 LIPID PANEL , STAND THAI chol/HDLC ratio 2.8 (calc ) <5.0 normal Not Available [facility] [address] [place], [address], 10/09/2024 03:56:41 10/08/1910/09/2024 LIPID PANEL , STAND THAI non HDL cholesterol 75 mg/dL _(aristeo c) <130 normal For patie nts with diabe claudy plus 1 major ASCVD risk facto r, treat ing to a non-H DL-C goal of <100 mg/dL (LDL- C of <70 mg/dL ) is consi dered a thera peuti c optio n. Not Available [facility] [address] [place], [address], 10/09/2024 03:56:41 10/08/1910/09/2024 COMPR EHENS PATY METAB OLIC PANEL glucose 130 mg/dL 65-99 high Fasti ng refer ence inter erwin For someo ne witho ut known diabe claudy, a gluco se value >125 mg/dL indic ates that they may have diabe claudy and this shoul d be confi rmed with a follo w-up test. Not Available [address], [address], 10/09/2024 03:56:43 10/08/19 25 10/09/2024 COMPR EHENS PATY METAB OLIC PANEL urea nitrogen (BUN) 16 mg/dL 7-25 normal Not Available [address], [address], 10/09/2024 03:56:43 10/08/19 25 10/09/2024 COMPR EHENS PATY METAB OLIC PANEL creatinine 0.82 mg/dL 0.70-1 .30 normal Not Available [address], [address], 10/09/2024 03:56:43 10/08/19 25 10/09/2024 COMPR EHENS PATY METAB OLIC PANEL eGFR 105 mL/mi n/1.7 3m2 > or = 60 normal Not Available [address], [address], 10/09/2024 03:56:43 10/08/19 25 10/09/2024 COMPR EHENS PATY METAB OLIC PANEL BUN/creatini ne ratio SEE NOTE: (calc ) 6-22 Not Repor john: BUN and Creat inine are withi n refer ence range . Not Available [address], [address], 10/09/2024 03:56:43 10/08/19 25 10/09/2024 COMPR EHENS PATY METAB OLIC PANEL sodium 140 mmol/ L 135-14 6 normal Not Available [address], [address], 10/09/2024 03:56:43 10/08/19 25 10/09/2024 COMPR EHENS PAYT METAB OLIC PANEL potassium 4.5 mmol/ L 3.5-5. 3 normal Not Available [address], [address], 10/09/2024 03:56:43 10/08/19 25 10/09/2024 COMPR EHENS PATY METAB OLIC PANEL chloride 104 mmol/ L 98-110 normal Not Available [address], [address], 10/09/2024 03:56:43 10/08/19 25 10/09/2024 COMPR EHENS PATY METAB OLIC PANEL carbon dioxide 29 mmol/ L 20-32 normal Not Available [address], [address], 10/09/2024 03:56:43 10/08/19 25 10/09/2024 COMPR EHENS PATY METAB OLIC PANEL calcium 9.3 mg/dL 8.6-10 .3 normal Not Available [address], [address], 10/09/2024 03:56:43 10/08/19 25 10/09/2024 COMPR EHENS PATY METAB OLIC PANEL protein, total 6.5 g/dL 6.1-8. 1 normal Not Available [address], [address], 10/09/2024 03:56:43 10/08/19 25 10/09/2024 COMPR EHENS PATY METAB OLIC PANEL albumin 4.0 g/dL 3.6-5. 1 normal Not Available [address], [address], 10/09/2024 03:56:43 10/08/19 25 10/09/2024 COMPR EHENS PATY METAB OLIC PANEL globulin 2.5 g/dL_ (calc ) 1.9-3. 7 normal Not Available [address], [address], 10/09/2024 03:56:43 10/08/19 25 10/09/2024 COMPR EHENS PATY METAB OLIC PANEL albumin/glob ulin ratio 1.6 (calc ) 1.0-2. 5 normal Not Available [address], [address], 10/09/2024 03:56:43 10/08/19 25 10/09/2024 COMPR EHENS PATY METAB OLIC PANEL bilirubin, total 0.6 mg/dL 0.2-1. 2 normal Not Available [address], [address], 10/09/2024 03:56:43 10/08/19 25 10/09/2024 COMPR EHENS PATY METAB OLIC PANEL alkaline phosphatase 70 U/L 35-144 normal Not Available [address], [address], 10/09/2024 03:56:43 10/08/19 25 10/09/2024 COMPR EHENS PATY METAB OLIC PANEL AST 14 U/L 10-35 normal Not Available [address], [address], 10/09/2024 03:56:43 10/08/19 25 10/09/2024 COMPR EHENS PATY METAB OLIC PANEL ALT 17 U/L 9-46 normal Not Available [address], [address], 10/09/2024 03:56:43 10/08/19 25 10/09/2024 CBC (INCL UDES DIFF/ PLT) white blood cell count 6.9 thous and/u L 3.8-10 .8 normal Not Available [address], [address], 10/09/2024 03:56:44 10/08/19 25 10/09/2024 CBC (INCL UDES DIFF/ PLT) red blood cell count 5.77 ayala on/uL 4.20-5 .80 normal Not Available [address], [address], 10/09/2024 03:56:44 10/08/19 25 10/09/2024 CBC (INCL UDES DIFF/ PLT) hemoglobin 15.0 g/dL 13.2-1 7.1 normal Not Available [address], [address], 10/09/2024 03:56:44 10/08/1910/09/2024 CBC (INCL UDES DIFF/ PLT) hematocrit 46.9 % 38.5-5 0.0 normal Not Available [address], [address], 10/09/2024 03:56:44 10/08/19 25 10/09/2024 CBC (INCL UDES DIFF/ PLT) MCV 81.3 fL 80.0-1 00.0 normal Not Available [address], [address], 10/09/2024 03:56:44 10/08/19 25 10/09/2024 CBC (INCL UDES DIFF/ PLT) MCH 26.0 pg 27.0-3 3.0 low Not Available [address], [address], 10/09/2024 03:56:44 10/08/1910/09/2024 CBC (INCL UDES DIFF/ PLT) MCHC 32.0 g/dL 32.0-3 6.0 normal For adult s, a sligh t decre ase in the calcu lated MCHC value (in the range of 30 to 32 g/dL) is most likel y not clini renard signi daphnie t; nick er, it shoul d be inter prete d with cauti on in corre latio n with other red cell gerhard eters and the patie nt's clini aristeo condi tion. Not Available [address] [place], [address], 10/09/2024 03:56:44 10/08/19 25 10/09/2024 CBC (INCL UDES DIFF/ PLT) RDW 14.9 % 11.0-1 5.0 normal Not Available [address], [address], 10/09/2024 03:56:44 10/08/19 25 10/09/2024 CBC (INCL UDES DIFF/ PLT) platelet count 230 thous and/u L 140-40 0 normal Not Available [address], [address], 10/09/2024 03:56:44 10/08/19 25 10/09/2024 CBC (INCL UDES DIFF/ PLT) MPV 11.3 fL 7.5-12 .5 normal Not Available [address], [address], 10/09/2024 03:56:44 10/08/19 25 10/09/2024 CBC (INCL UDES DIFF/ PLT) absolute neutrophils 4589 cells /uL 1500-7 800 normal Not Available [address], [address], 10/09/2024 03:56:44 10/08/19 25 10/09/2024 CBC (INCL UDES DIFF/ PLT) absolute lymphocytes 1332 cells /uL 850-39 00 normal Not Available [address], [address], 10/09/2024 03:56:44 10/08/19 25 10/09/2024 CBC (INCL UDES DIFF/ PLT) absolute monocytes 690 cells /uL 200-95 0 normal Not Available [address], [address], 10/09/2024 03:56:44 10/08/19 25 10/09/2024 CBC (INCL UDES DIFF/ PLT) absolute eosinophils 228 cells /uL 15-500 normal Not Available [address], [address], 10/09/2024 03:56:44 10/08/19 25 10/09/2024 CBC (INCL UDES DIFF/ PLT) absolute basophils 62 cells /uL 0-200 normal Not Available [facility] [address], [address], 10/09/2024 03:56:44 10/08/19 25 10/09/2024 CBC (INCL UDES DIFF/ PLT) neutrophils 66.5 % normal Not Available [address], [address], 10/09/2024 03:56:44 10/08/19 25 10/09/2024 CBC (INCL UDES DIFF/ PLT) lymphocytes 19.3 % normal Not Available [facility] [address], [address], 10/09/2024 03:56:44 10/08/19 25 10/09/2024 CBC (INCL UDES DIFF/ PLT) monocytes 10.0 % normal Not Available [facility] [address], [address], 10/09/2024 03:56:44 10/08/19 25 10/09/2024 CBC (INCL UDES DIFF/ PLT) eosinophils 3.3 % normal Not Available [facility] [address], [address], 10/09/2024 03:56:44 10/08/19 25 10/09/2024 CBC (INCL UDES DIFF/ PLT) basophils 0.9 % normal Not Available [facility] [address], [address], 10/09/2024 03:56:44 10/08/19 25 10/09/2024 T4, FREE T4, free 1.2 NG/dL 0.8-1. 8 normal Not Available [facility] [address] [place] [address], [address], 10/09/2024 03:56:46 10/08/19 25 10/09/2024 TSH TSH 1.01 mIU/L 0.40-4 .50 normal Not Available [facility] [address] [place] [address], [address], 10/09/2024 03:56:47 10/08/1910/09/2024 HEMOG LOBIN A1C hemoglobin A1C 6.4 %_of_ total _HGB <5.7 high For someo ne witho ut known diabe claudy, a hemog lobin A1c value betwe en 5.7% and 6.4% is consi stent with predi abete s and shoul d be confi rmed with a follo w-up test. For someo ne with known diabe claudy, a value <7% indic ates that their diabe claudy is well contr olled . A1c targe ts shoul d be indiv idual ized based on durat ion of diabe claudy, age, comor bid condi tions , and other consi derat ions. This assay resul t is consi stent with an incre ased risk of diabe claudy. Curre ntly, no conse nsus exist s jacinda daugherty use of hemog lobin A1c for diagn osis of diabe claudy for child milvia. Not Available [facility] [address] [place], [address], 10/09/2024 03:56:48 Result Notes None recorded. 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 2021 Not Available [facility] 3 00:00:47 Benign essential hypertensi on 3251168 Active Not Available [facility] 3 00:00:47 Pain of left ankle joint 1328206845726 9103 Active 2022 Not Available [facility] 3 00:00:47 Peripheral venous insufficie ncy 09825380 Active Not Available [facility] 3 00:00:47 Morbid obesity 648282468 Active 2021 Not Available [facility] 3 00:00:47 Osteoarthr itis of knee 832095451 Active Not Available [facility] 3 00:00:47 Pure hyperchole sterolemia 148335198 Active Not Available [facility] 3 00:00:47 Current tear of medial cartilage AND/OR meniscus of knee Active Not Available [facility] 3 00:00:47 Current tear of lateral cartilage AND/OR meniscus of knee Active Not Available [facility] 3 00:00:47 Pain in right foot 3126807236540 07 Active 2022 Not Available [facility] 3 00:00:47 Type 2 diabetes mellitus 80587634 Active Not Available [facility] 3 00:00:47 Vitamin B12 deficiency (non anemic) 00461282 Active Not Available [facility] 3 00:00:47 COVID-19 880755463 Active 2021 Not Available [facility] 3 00:00:47 Peroneal tendinitis of right lower limb 3539266047782 09 Active 2022 Not Available [facility] 3 00:00:47 Onychomyco sis of toenails 540896650 Active 2022 Not Available [facility] 3 00:00:47 Disorder of prostate 02268049 Active 2022 Not Available [facility] 3 00:00:47 Anemia 600990234 Active 2023 Mary rene [facility] 4 12:52:30 Problem Notes None recorded. Procedures Surgical History Date Name Laterality Status Provider Name and Address Organization Details Recorded Time 3 Nail Debridement completed Eloy Estrella DPM [address] [facility], [facility] [address], [place], [address], [facility] 07/02/2023 09:32:03 3 Nail Debridement completed Eloy Estrella DPM [address], [place], [address], [facility] [employer] [facility] 04/02/2023 09:24:52 3 Nail Debridement completed Eloy Estrella DPM [address], [place], [address], [facility] [employer] [facility] 02/28/2023 09:11:39 3 Nail Debridement completed Eloy Estrella DPM [address], [place], [address], [facility] [employer] [facility] 01/10/2023 09:39:23 3 Nail Debridement completed Eloy Estrella DPM [address], [place], [address], [facility] [employer] [facility] 11/22/2022 09:59:02 Imaging Results None recorded. Procedure Notes None recorded. Medical Equipment None Reported. Allergies Allergen ID Allergen Name Allergen Category Reaction Reaction Severity Criticality Documentation Date Start Date Code Code System Note Provider Name and Address Organization Details Recorded Time 81368 Product containin g penicilli n (product) medicatio n rash Not available Not available 10/24/2022 86370 8001 SNOMED Not Available [facility] 3 14:54:04 Medications Name Sig Start Date Stop Date Status Note LastModified by Organization Details LastModified Time atorvastati n 40 mg tablet TAKE 1 TABLET DAILY active Not Available Not Available No t Available Keflex 500 mg capsule Take 1 capsule 4 times a day by oral route. active Not Available Not Available No t Available miconazole nitrate 2 % topical powder active Not Available Not Available Not Available aspirin 81 mg tablet,luisito yed release Take 1 tablet every day by oral route. 2012 active Not Available Not Available Not Avai lable terbinafine HCl 250 mg tablet TAKE 1 TABLET BY MOUTH EVERY DAY DIRECTED 10/05 completed Not Available Not Available Not Available cyanocobala min (vit B-12) 1,000 mcg/mL injection solution Inject 1 mL every month by subcutane ous route. 10/10/ 2024 active Not Available Not Available Not Avai lable metformin 1,000 mg tablet TAKE 1 TABLET TWICE A DAY active Not Available Not Available No t Available glimepiride 4 mg tablet TAKE 1 TABLET BY MOUTH EVERY MORNING AND 1/2 TABLET EVERY NIGHT active Not Available Not Available No t Available hydrochloro thiazide 12.5 mg capsule 10/05 completed Not Available Not Available Not Available ketoconazol e 2 % topical cream APPLY TO THE AFFECTED AREA(S)to enails BY TOPICAL ROUTE ONCE DAILY 2022 active Not Available Not Available Not Avai lable lisinopril 40 mg tablet TAKE 1 TABLET DAILY active Not Available Not Available No t Available cefdinir 300 mg capsule TAKE 1 CAPSULE BY MOUTH TWICE DAILY FOR 7 DAYS 04/06 completed Not Available Not Available Not Available metformin ER 500 mg tablet,exte nded release 24 hr active Not Available Not Available Not Available testosteron e 1 % (50 mg/5 gram) transdermal gel packet Apply by transderm al route for 30 days. 10/05 completed Not Available Not Available Not Available metformin ER 1,000 mg tablet,exte nded release 24hr (osmotic) Take 1 tablet twice a day by oral route. 11/11 completed Not Available Not Available Not Available hydrochloro thiazide 12.5 mg tablet TAKE 1 TABLET BY MOUTH DAILY active Not Available Not Available No t Available Androderm 4 mg/24 hr transdermal 24 hour patch APPLY 1 PATCH TOPICALLY TO THE SKIN EVERY DAY 10/05 completed Not Available Not Available Not Available Invokana 100 mg tablet Take 1 tablet every day by oral route. 03/11 completed Not Available Not Available Not Available Invokana 300 mg tablet Take 1 tablet every day by oral route. 09/10 completed Not Available Not Available Not Available PreserVisio n AREDS-2 250 mg-90 mg-40 mg-1 mg capsule Take 1 capsule every day by oral route. 10/07 completed Not Available Not Available Not Available Farxiga 10 mg tablet Take 1 tablet every day by oral route. active Not Available Not Available No t Available Farxiga 5 mg tablet Take 1 tablet every day by oral route. 11/19 completed Not Available Not Available Not Available Trulicity 1.5 mg/0.5 mL subcutaneou s pen injector Inject 0.5 mL every week by subcutane ous route. active Not Available Not Available No t Available Trulicity 3 mg/0.5 mL subcutaneou s pen injector INJECT 3 MG BY SUBCUTANE OUS ROUTE ONCE WEEKLY 09/10 completed Not Available Not Available Not Available Trulicity 4.5 mg/0.5 mL subcutaneou s pen injector INJECT 4.5 MG BY SUBCUTANE OUS ROUTE ONCE WEEKLY 04/06 completed Not Available Not Available Not Available Ozempic 1 mg/dose (4 mg/3 mL) subcutaneou s pen injector active Not Available Not Available Not Available BinaxNOW COVID-19 Ag Self Test kit TEST DIRECTED TODAY 09/10 completed Not Available Not Available Not Available Paxlovid 300 mg (150 mg x 2)-100 mg tablets in a dose pack Take two of he 150 mg tablets and one of the 100 mg tablets twice daily for five days active Not Available Not Available No t Available FreeStyle Sandy 3 Sensor device CHANGE SENSOR EVERY 14 DAYS active Not Available Not Available No t Available Ozempic 0.25 mg or 0.5 mg (2 mg/3 mL) subcutaneou s pen injector 10/05 completed Not Available Not Available Not Available Vitals Date Recorded Body height Body mass index (BMI) Body weight Heart rate Oxygen saturation Oxygen saturation in Arterial blood by Pulse oximetry Systolic blood pressure Diastolic blood pressure Provider Name and Address Organization Details Last Updated DateTime 5 180.34 cm 41.8 kg/m2 378317. 71 g 68 /min 99 % 99 % 118 mm[Hg] 72 mm[Hg] Komal Wilson CMA [employer] [facility] [employer] 5 10:27:58 Date Recorded Body height Body mass index (BMI) Body weight Heart rate Body temperature Oxygen saturation Oxygen saturation in Arterial blood by Pulse oximetry Systolic blood pressure Diastolic blood pressure Provider Name and Address Organization Details Last Updated DateTime 4 180.34 cm 45.6 kg/m2 162879. 7 g 92 /min 97.7 [degF] 98 % 98 % 116 mm[Hg] 62 mm[Hg] MARIANA Kelley [employer] [facility] [employer] 4 15:55:49 Date Recorded Body height Body mass index (BMI) Body weight Heart rate Respiratory rate Oxygen saturation Oxygen saturation in Arterial blood by Pulse oximetry Systolic blood pressure Diastolic blood pressure Provider Name and Address Organization Details Last Updated DateTime 3 182.88 cm 43 kg/m2 860374. 78 g 78 /min 14 /min 97 % 97 % 111 mm[Hg] 70 mm[Hg] Barbara Bueno [facility] [employer] [facility] 3 09:06:40 Date Recorded Body height Body mass index (BMI) Body weight Heart rate Body temperature Oxygen saturation Oxygen saturation in Arterial blood by Pulse oximetry Systolic blood pressure Diastolic blood pressure Provider Name and Address Organization Details Last Updated DateTime 4 180.34 cm 43.5 kg/m2 612950. 82 g 91 /min 97.3 [degF] 98 % 98 % 118 mm[Hg] 74 mm[Hg] MARIANA Kelley [facility] [employer] [facility] 4 16:06:05 Date Recorded Body height Body mass index (BMI) Body weight Heart rate Respiratory rate Oxygen saturation Oxygen saturation in Arterial blood by Pulse oximetry Provider Name and Address Organization Details Last Updated DateTime 3 182.88 cm 43 kg/m2 680704. 78 g 81 /min 14 /min 99 % 99 % Barbara Bueno [facility] [employer] [facility] 3 09:23:00 Social History Question Answer Notes LastModified by [employer] Details LastModified Time Tobacco Smoking Status Current Every Day Smoker Not Available [facility] 10/24/2022 14:45:48 What Is Your Level Of Caffeine Consumption? Occasional [id number] Information not available 10/24/2022 What Was The Date Of Your Most Recent Tobacco Screening? 10/11/2022 [id number] Information not available 10/24/2022 Have You Ever Been Counseled For Unhealthy Alcohol Use? No [id number] Information not available 10/24/2022 Has Tobacco Cessation Counseling Been Provided? No [id number] Information not available 10/24/2022 Sex: Unknown Functional Status Question Answer Note LastModified by [employer] Details LastModified Time Do you use any illicit or recreational drugs? No [id number] Information not available 10/24/2022 Do you or have you ever used any other forms of tobacco or nicotine? No [id number] Information not available 10/24/2022 What is your level of alcohol consumption? Occasional [id number] Information not available 10/24/2022 Mental Status None recorded. Family History Relationship Description Onset Age of this Age Resolved Age Notes LastModified by Organization Details LastModified Time Father Diabetes mellitus [id number] Not available 10/24/2022 14:45:53 Father Hypertensive disorder [id number] Not available 10/24/2022 14:45:53 Father Heart disease [id number] Not available 10/24/2022 14:45:53 Father Family history of malignant neoplasm [id number] Not available 10/24/2022 14:45:53 Mother Diabetes mellitus [id number] Not available 10/24/2022 14:45:53 Mother Hypertensive disorder [id number] Not available 10/24/2022 14:45:53 Mother Heart disease [id number] Not available 10/24/2022 14:45:53 Mother Family history of malignant neoplasm [id number] Not available 10/24/2022 14:45:53 Unspecified Relation Diabetes mellitus [id number] Not available 10/24/2022 14:45:53 Unspecified Relation Hypertensive disorder [id number].110 [id number] Not available 10/24/2022 14:45:53 Unspecified Relation Family history of malignant neoplasm [id number] Not available 10/24/2022 14:45:54 Notes:Mother 72 hx of hypert ension Father 80 arteriosclerotic heart disease, hypertension and diabetes, [place] Three brothers in good health two have Cholesterol(2) Medical History Condition Response NERVE DISEASE N BLINDNESS N RHEUMATIC FEVER Y KIDNEY STONES N BLADDER PROBLEMS N MRSA N OTHER # 1 N POLIO N LUNG DISEASE/DISORDER N RADIATION / CHEMOTHERAPY N COPD N Other # 2 N BLOOD DISEASES N EAR OR HEARING PROBLEMS N MUMPS N BOWEL PROBLEMS N DEPRESSION (INCLUDING POST ) N STROKE/TIA N ULCERS N BENIGN PROSTATIC HYPERPLASIA N MEASLES N MYOCARDIAL INFARCTION N OBESITY Y GERD/NAUSEA N ANEURYSM N URINARY/BLADDER/KIDNEY PROBLEMS N CORONARY ARTERY DISEASE (CAD) N ADDICTION CONCERNS N Impotence N ENDOMETRIOSIS N USE OF BLOOD THINNERS N SKIN PROBLEMS N GASTROINTESTINAL DISORDER N PERIPHERAL VASCULAR DISEASE Y MUSCLE,JOINT OR BONE PROBLEMS N GASTROINTESTINAL BLEEDING N BLOOD CLOTS N ASTHMA N CATARACTS N ERECTILE DYSFUNCTION N VARICOSITIES N GI PROBLEMS N Low Testosterone N INFERTILITY N AIDS/HIV N CHEMOTHERAPY / RADIATION N LIVER DISEASE N MALE HYPOGONADISM N HYPERTENSION Y Deficiency N TOURETTE'S N ANXIETY DISORDER N BLOOD TRANSFUSION N ANEMIA/BLOOD DISORDER Y CHRONIC EAR INFECTIONS N BRONCHITIS N TUBERCULOSIS N GLAUCOMA N FOOT PROBLEM N DIVERTICULITIS N SLEEP APNEA N CHICKENPOX N INFECTIOUS DISEASE N PROSTATE N HEART ARRHYTHMIA N INSOMNIA N HIGH CHOLESTEROL / HYPERLIPIDEMIA Y EYE PROBLEMS N HYPERTHYROIDISM N EDEMA N CHRONIC PAIN SYNDROME N HYPOTHYROIDISM N CONSTIPATION N CAROTID BLOCKAGE N BACK / NECK PROBLEMS N HAVE YOU BEEN HOSPITALIZED OR SEEN IN [facility] ER IN THE PAST YEAR ? N ATHEROSCLEROSIS N BREAST PROBLEMS N DIALYSIS N ECZEMA N OSTEOPOROSIS N ARTHRITIS N NO SIGNIFICANT PAST MEDICAL HISTORY N APPENDICITIS N DIABETES, TYPE Y BAD TEETH N ENT N HEARTBURN / REFLUX N AUTISM SPECTRUM DISORDER (ASD) N HEPATITIS / LIVER DISEASE N GOUT N SLEEP DISORDER N ALZHEIMER'S DISEASE N Brain Problems N DEMENTIA N HERPES N SEIZURES/EPILEPSY N HEADACHES/MIGRAINES N VASCULAR DISEASE N PACEMAKER N Blood Disorder N DIZZINESS N HEART DISEASE/HEART PROBLEMS N KIDNEY DISEASE N MULTIPLE SCLEROSIS N CANCER: SPECIFY N CARDIAC ARRHYTHMIA N ATRIAL FIBRILLATION N Gall Stones N PULMONARY EMBOLISM N AUTOIMMUNE DISEASE N Immunizations Vaccine Type Date Status Note Provider Nam e and Address Organization Details Recorded Time SARS-COV-2 (COVID-19) vaccine, UNSPECIFIED 1 completed Not Available [facility] 07/04/2023 00:00:47 SARS-COV-2 (COVID-19) vaccine, UNSPECIFIED 1 completed Not Available [facility] 07/04/2023 00:00:47 SARS-COV-2 (COVID-19) vaccine, UNSPECIFIED 1 completed Not Available [facility] 07/04/2023 00:00:47 Influenza, split virus, quadrivalent, preservative 1 completed Not Available [facility] 07/04/2023 00:00:47 Influenza, split virus, quadrivalent, PF 3 completed Not Available [facility] 07/04/2023 00:00:47 Past Encounters Encounter ID Performer Location Encounter Start Date Encounter Closed Date Diagnosis/Indication Diagnosis SNOMED-CT Code Diagnosis ICD10 Code Diagnosis Note [id number] Dustin Gonsalez MD [facility] Internal Med [facility] [address] [address] 03/06/2021 00:00:00 03/06/2021 10:42:09 [id number] Dustin Gonsalez MD [facility] Internal Med [facility] [address] [address] 09/25/2021 00:00:00 09/25/2021 16:59:36 [id number] Dustin Gonsalez MD [facility] Internal Med [facility] [address] [address] 03/26/2022 00:00:00 03/26/2022 12:07:32 [id number] Dustin Gonsalez MD [facility] Internal Med [facility] [address] [address] 09/10/2022 00:00:00 09/10/2022 11:29:16 [id number] Eloy Estrella DPM [facility] [address] [address] 10/11/2022 00:00:00 10/11/2022 10:20:07 [id number] Eloy Estrella DPM [facility] [address] [address] 11/22/2022 09:20:00 11/22/2022 11:57:11 Pain of left ankle joint 5329108215 7982904 M25.572 obtain x-rays today Pain in right foot 59978 11667 87931 M79.671 obtain x-rays today Peroneal t endinitis of right lower limb 9659535782 98762 M76.71 rice therapyedu cated on Voltaren gelRx custom orthoticsc ontinue supportive shoe gearfollow -up 8 weeks Onychomyco sis of toenails 145785628 B35.1 nails debridedor cooper for PAS stainfollo w-up testing [id number] Eloy Estrella DPM [facility] Pod[facility]ry [address] [address] 01/10/2023 08:53:13 01/10/2023 10:05:56 Pain of left ankle joint 9869978560 6654107 M25.572 resolvedco ntinue custom orthotics and supportive shoe gear Onychomyco sis of toenails 647103599 B35.1 testing reviewed with the patientpos itive for fungal cultures Peroneal t endinitis of right lower limb 4674463224 15563 M76.71 resolvedAs above [id number] Eloy Estrella DPM [facility] [place] [address] [address] 02/28/2023 08:56:58 02/28/2023 09:20:19 Onychomycosis of toenails 909398007 B35.1 Continue oral terbinafin e- 60 daysobtain recent lab work- reviewed on patients lab work on his phone normal AST ALTpositiv e for fungal culturesre peat lab work in 1 monthFollo w-up 1 month [id number] MD CHRIST [facility] Internal Med [facility] [address] [address] 03/11/2023 11:17:35 03/11/2023 12:37:25 Adult health examination 914537216 Z00.00 Depression screening 171 786363 Z13.31 Benign ess ential hypertension 0020593 I10 Pure hypercholesterolemia 701736303 E78.00 Type 2 antonia betes mellitus 36511753 E11.37X9 Morbid obesity 204759723 E66.01 Disorder of prostate 302 78356 N42.9 [id number] Eloy Estrella DPM [facility] [place] [address] [address] 04/02/2023 09:02:19 04/02/2023 09:50:02 Onychomycosis of toenails 492328013 B35.1 Continue oral terbinafin eobtain lab work- pt states he will go to obtainposi tive for fungal culturesFo llow-up 1 month [id number] [facility]rella [facility] [address] [place] [address] 07/02/2023 09:12:48 07/02/2023 09:45:06 Onychomycosis of toenails 702355651 B35.1 Discontinu e oral terbinafin econtinue topical ketoconazo le to the toenails until tube is finished dailyRx miconazole powder for daily use with shoe gear to prevent recurrence labs were negative and reviewedfo llow-up as needed [id number] Dustin Gonsalez MD [facility] Internal Med [facility] [address] [address] 10/07/2023 15:51:19 10/07/2023 16:25:50 Benign essential hypertension 2843665 I10 Pure hypercholesterolemia 497447097 E78.00 Type 2 antonia betes mellitus 60851833 E11.37X9 Disorder of prostate 302 07286 N42.9 [id number] Dustin Gonsalez MD [facility] Internal Med [facility] [address] [address] 04/06/2024 16:01:21 04/06/2024 17:09:07 Adult health examination 116071405 Z00.00 Depression screening 171 465709 Z13.31 Pure hypercholesterolemia 810437947 E78.00 Benign ess ential hypertension 2985168 I10 Type 2 antonia betes mellitus 25195983 E11.37X9 Morbid obesity 362143324 E66.01 Disorder of prostate 302 63864 N42.9 [id number] Dustin Gonsalez MD [facility] Internal Med [facility] [address] [address] 10/05/2024 10:18:38 10/05/2024 10:58:24 Benign essential hypertension 5815044 I10 Pure hypercholesterolemia 089195830 E78.00 Type 2 antonia betes mellitus 40420249 E11.37X9 Morbid obesity 706084061 E66.01 Health Concerns Section Related Observation LastModified by Organization Detai ls LastModified Time None Recorded Concern Status LastModified by Organization Details LastModified Time None Recorded Advance Directives Directive None Recorded Payers Encounter Date Sequence Insurance Name Policy Number Policy Magaña Covered Member ID Magaña Member ID Guarantor Name 04/02/2023 1 [employer] [id number] Cam Baxter [id number] Cam Baxter 07/02/2023 1 [facility] PLUS [id number] Cam Baxter [id number] Cam Baxter 10/07/2023 1 [facility] PLUS [id number] Cam Baxter [id number] Cam Baxter 04/06/2024 1 [facility] [id number] Cam Baxter [id number] Cam Baxter 10/05/2024 1 [facility] [id number] Cam Baxter [id number] Cam Baxter Notes Date Note Type Note Provider Name and Address Organization Details Recorded Time 3 text/htm l . Patient is a 52-year-old male who returns the office for follow-up on onychomycosis of his toenails. Patient has been taking oral terbinafine for 1 month and has been using topical ketoconazole as well. Patient states he has been trying to keep the area filed down. Patient states that he has noticed a visual improvement of the nails. Patient denies any side effects with use of the medication. Patient denies any other complaints. Patient states that he did not obtain his labs prior to this visit. I did review again the importance of obtaining these labs to ensure the medication is not affecting his liver. Eloy Estrella DPM [address], [facility] [address], [place], [address], [employer] [facility] [employer] 04/02/2023 09:26:53 3 text/htm l . Patient is a 53-year-old male who returns the office for follow-up on onychomycosis of the great toenails. Patient has been on oral terbinafine for 3 months had repeat testing for liver enzymes which were negative. Patient states he had no side effects with use of the medication and states that his toenails have cleared up. Patient denies any other complaints. I did recommend that the patient apply topical antifungal powder daily to his socks to prevent recurrence of athlete's foot and fungus to his toenails. Patient denies any other complaints. Eloy Estrella DPM [address], [address], [place], [address], [employer] [facility] 07/02/2023 09:33:00 4 text/htm l Patient Name: Cam Garcia Of Service: Saturday ( 10.07.2023 ): 1970 Age: 53 There has been approximately a 4 lb weight gain since 03/11/2023. This represents approximately a 1.3% change in weight. Weight change attributable to lifestyle changes. Vital Signs:Blood Pressure: Sitting Rt. Arm 116/62Pulse: Sitting 92 /min and RegularRespiratory Rate: 12Height 71 in or 1.8 mWeight 321 lb or 145.6 kgBMI 44.8Temperature: 97.7 F or 36.5 CPulse Oximetry: 98 % at rest on no oxygen Chief Complaint: Addressed in HPI Problems or conditions discussed in the HPI were the only ones reviewed during the encounter.Only social and family history addressed in the HPI were reviewed during this encounter. Attendant(s): NoneConstitutional and Systemic Symptoms:none Medication Reconciliation: from medication list. History of Present Illness #1. Essential Hypertension: Stage: Stage I Interval Neurological Complaints no headaches, dizziness, weakness, visual changes, ataxia, aphasia and apraxia. No shortness of breath, orthopnea or cardiovascular symptoms. No other symptoms related to end organ damage. Pressure has been under excellent control. Currently normal. No other end organ symptoms or findings. Therapy reviewed regarding management of hypertension and includes salt restriction and Hydrochlorothiazide and Lisinopril. #2. Type II Hypercholesterolaemia: Currently taking medication and tolerating well. No interval complaints of any muscle pain or arthralgia. No significant liver changes with medications. Last lipid panel: fair control. Therapy reviewed regarding treatment of cholesterol management and include diet and Lipitor. #3. Type II Diabetes: Has had no polyuria polyphagia or polydipsia. Has had no hypoglycemic like responses. No new history of any numbness, tingling, weakness or visual problems. No nausea, anorexia or other constitutional symptoms. There has been no foot problems or non healing lesions. The last HAIC was [facility] HAIC: 7.0 Calculated MB mg%. Average blood sugars 125-150 mg%. Checking sugars : several times a week Medication Types Include: Metformin, GLP-1, Sulfonylureas and SGLT2 inhibitors Secondary complications include none. Macro-vascular complications include none. Therapy reviewed regarding diabetic management and include Amaryl, Farxiga, Metformin Hydrochloride and Trulicity Compliance: excellent Renal Protection: DUNCAN inhibitors Lipid management: statins Urinary microalbumin: A1 . Ophthalmological: has seen eye doctor within the last year #4. Hx of obesity. Currently Class 3 Obesity SD > 40. Has tried numerous dietary support and supplements with no benefit. Instructed on the health consequences of the obese status particularly cancer - diabetes and heart disease. Discussed new modalities of weight loss including GLP-1 medications that are used to treat diabetes. Potential candidate for bariatric surgery: Yes but does no wish to pursue. Wishes to be evaluated by Dietary: No and was offered to be evaluated and instructed by metallurgical specialist on weight loss diet. Active Medication ListAspirin 81 MG Once DailyHydrochlorothiazide 12.5 MG (TABLET - ORAL) One Daily For Blood PressureAmaryl 4 MG (TABLET - ORAL) One Twice DailyLipitor 40 MG (TABLET - ORAL) Once DailyLisinopril 40 MG (TABLET - ORAL) One Daily For Blood PressureMetformin Hydrochloride 1 GM (TABLET - ORAL) One Bid For DiabetesFarxiga 10 MG TABLET, FILM COATED One DailyTrulicity 4.5 MG/.5ML INJECTION, SOLUTION Inject Once Weekly Adverse Drug Reactions ReviewedPenicillin Rash Vaccination and Cuxgxvbovmbs8624-49 Xsnbylatk3060-63 Covid Booster Btqxzeq9986-57 Covid Moderna Surgical Qbsimhl6444-80 Gastric Banding Preventative Testing Confirmed by Our Otgecpk3507/01/2023 ALBUMIN 4.1 G/DL N002/13/2023 HAIC 7. MICRO ALBUMIN 13.0 MG/L N003/26/2022 PSA 0.68 NG/ML N002/25/2019 COLONOSCOPY (5 YEARS) OPTOMETRY Social HistoryDoes not smoke. Drinks socially. Works as a language arts teacher in high school. Family HistoryMother 72 hx of hypertensionFather 80 arteriosclerotic heart disease, hypertension and diabetes, [place]Three brothers in good health two have Cholesterol(2) Dustin Gonsalez MD [address] [facility], [place], [address], [place] [facility] [employer] 10/07/2023 16:15:24 4 text/htm l Patient Name: Cam BaxterDate Of Service: Saturday ( 04.06.2024 ): 1970 Age: 53 [facility] HAIC: 7.3 Calculated MB mg% Chief Complaint: Addressed in HPI Problems or conditions discussed in the HPI were the only ones reviewed during the encounter.Only social and family history addressed in the HPI were reviewed during this encounter. Attendant(s): NoneConstitutional and Systemic Symptoms:none Medication Reconciliation: by patient. History of Present Illness In for a well patient check up. Last well patient evaluation was approximately one year. No interval complaints of any new major medical problems. No hx of any chest pain, shortness of breath, nausea, vomiting, diarrhea or constitutional symptoms.PSA orderedColonoscopy or Cologuard: dueImmunizations Up To Date or refuses to takeNo Significant Change In Family HxFall Risk normalDepression Score: 0Hearing normalVisual normalReviewed Smoking and Drug HistoryReviewed Immunization HistoryInstructed on importance of weight on diabetes, heart and other diseases aggravated by obesity.Instructed on importance of weight on diabetes, heart and other diseases aggravated by obesity. #1. Essential Hypertension: Stage: Stage I Interval Neurological Complaints no headaches, dizziness, weakness, visual changes, ataxia, aphasia and apraxia. No shortness of breath, orthopnea or cardiovascular symptoms. No other symptoms related to end organ damage. Pressure has been under excellent control. Currently normal. No other end organ symptoms or findings. Therapy reviewed regarding management of hypertension and includes salt restriction and Hydrochlorothiazide and Lisinopril. #2. Type II Hypercholesterolaemia: Currently taking medication and tolerating well. No interval complaints of any muscle pain or arthralgia. No significant liver changes with medications. Last lipid panel: fair control. Therapy reviewed regarding treatment of cholesterol management and include diet and Lipitor. #3. Type II Diabetes: Has had no polyuria polyphagia or polydipsia. Has had no hypoglycemic like responses. No new history of any numbness, tingling, weakness or visual problems. No nausea, anorexia or other constitutional symptoms. There has been no foot problems or non healing lesions. The last HAIC was [facility] HAIC: 7.3 Calculated MB mg%. Average blood sugars 125-150 mg%. Checking sugars : approximately once daily Medication Types Include: Metformin, GLP-1, Sulfonylureas and SGLT2 inhibitors Secondary complications include none. Macro-vascular complications include none. Therapy reviewed regarding diabetic management and include Amaryl, Farxiga, Metformin Hydrochloride and Ozempic Compliance: good Renal Protection: DUNCAN inhibitors Lipid management: statins Urinary microalbumin: A1 . Ophthalmological: has seen eye doctor within the last year Active Medication ListAspirin 81 MG Once DailyHydrochlorothiazide 12.5 MG (TABLET - ORAL) One Daily For Blood PressureAmaryl 4 MG (TABLET - ORAL) One Twice DailyLipitor 40 MG (TABLET - ORAL) Once DailyLisinopril 40 MG (TABLET - ORAL) One Daily For Blood PressureMetformin Hydrochloride 1 GM (TABLET - ORAL) One Bid For DiabetesFarxiga 10 MG TABLET, FILM COATED One DailyOzempic 1MG (4MG/3ML) Inject Once Weekly Adverse Drug Reactions ReviewedPenicillin Rash Vaccination and [id number] Covid Booster [id number] Covid Moderna Surgical [id number] Gastric Banding Preventative Testing( ) 07/01/2023 Albumin 4.1 G/DL N( ) 02/13/2023 HAIC 7.4( ) 09/10/2022 Micro Albumin 13.0 MG/L N(X) 03/26/2022 PSA 0.68 NG/ML N 03/26/2023(X) 02/25/2019 Colonoscopy (5 Years) 02/26/2024( ) 01/21/2019 Optometry Social HistoryDoes not smoke. Drinks socially. Works as a language arts teacher in high school. Family HistoryMother 72 hx of hypertensionFather 80 arteriosclerotic heart disease, hypertension and diabetes, CAThree brothers in good health two have Cholesterol(2) Dustin Gonsalez MD [address] [facility], [facility] [address], [place], [address], [place] - [facility] [employer] 04/06/2024 16:28:15 5 text/htm l Patient Name: Cam BaxterSergio Of Service: Saturday ( 10.05.2024 ): 1970 Age: 54 There has been approximately a 12 lb weight loss since 04/26/2024. This represents approximately a 3.8% change in weight. Weight change attributable to lifestyle changes. Vital Signs:Blood Pressure: Sitting Rt. Arm 118/72Pulse: Sitting 68 /min and RegularRespiratory Rate: 16Height 71 in or 1.8 mWeight 300 lb or 136.1 kgBMI 41.8DCCT HAIC: 6.1 Calculated MB mg%Pulse Oximetry: 98 % at rest on no oxygen Chief Complaint: Addressed in HPI Problems or conditions discussed in the HPI were the only ones reviewed during the encounter.Only social and family history addressed in the HPI were reviewed during this encounter. Attendant(s): NoneConstitutional and Systemic Symptoms:none Medication Reconciliation: from medication list. History of Present Illness #1. Essential Hypertension: Stage: Stage I Interval Neurological Complaints no headaches, dizziness, weakness, visual changes, ataxia, aphasia and apraxia. No shortness of breath, orthopnea or cardiovascular symptoms. No other symptoms related to end organ damage. Pressure has been under excellent control. Currently normal. No other end organ symptoms or findings. Therapy reviewed regarding management of hypertension and includes salt restriction and Hydrochlorothiazide and Lisinopril. #2. Type II Hypercholesterolaemia: Currently taking medication and tolerating well. No interval complaints of any muscle pain or arthralgia. No significant liver changes with medications. Last lipid panel: excellent control. Therapy reviewed regarding treatment of cholesterol management and include diet and Lipitor. #3. Type II Diabetes: Has had no polyuria polyphagia or polydipsia. Has had no hypoglycemic like responses. No new history of any numbness, tingling, weakness or visual problems. No nausea, anorexia or other constitutional symptoms. There has been no foot problems or non healing lesions. [facility] Calculated MB mg%. CGM: No. Average blood sugars 116-125 mg%. Checking sugars : several times a week. Medication Types Include: Metformin, GLP-1, Sulfonylureas and SGLT2 inhibitors Secondary complications include none. Macro-vascular complications include excellent. Therapy reviewed regarding diabetic management and include none Compliance: statins Renal Protection: A1 Lipid management: has seen eye doctor within the last year Urinary microalbumin: Below 6.2 . Ophthalmological: Class 3 Obesity SD > 40. Control: currently using GLP-1 Inhibitors with diet and doing well #4. Hx of obesity. Currently No. Has tried numerous dietary support and supplements with no benefit. Instructed on the health consequences of the obese status particularly cancer - diabetes and heart disease. Discussed other modalities of weight loss No and was offered to be evaluated and instructed by metallurgical specialist on weight loss diet . Potential candidate for bariatric surgery: No. Wishes to be evaluated by Dietary: No and was offered to be evaluated and instructed by metallurgical specialist on weight loss diet. Active Medication ListAspirin 81 MG Once DailyHydrochlorothiazide 12.5 MG (TABLET - ORAL) One Daily For Blood PressureAmaryl 4 MG (TABLET - ORAL) One Twice DailyLipitor 40 MG (TABLET - ORAL) Once DailyLisinopril 40 MG (TABLET - ORAL) One Daily For Blood PressureMetformin Hydrochloride 1 GM (TABLET - ORAL) One Bid For DiabetesFarxiga 10 MG TABLET, FILM COATED One DailyOzempic 1MG (4MG/3ML) Inject Once Weekly Adverse Drug Reactions ReviewedPenicillin Rash Vaccination and Immunization(X) 2021-06 INFLUENZA( ) 2020- COVID MODERNA(X) 2021-06 COVID BOOSTER MODERNA Surgical [id number] Gastric Banding Preventative Testing( ) 04/20/2024 PSA 0.90 NG/ML 04/20/2025( ) 07/01/2023 Albumin 4.1 G/DL N( ) 02/13/2023 HAIC 7.4( ) 09/10/2022 Micro Albumin 13.0 MG/L N(X) 02/25/2019 Colonoscopy (5 Years) 02/26/2024( ) 01/21/2019 Optometry Social HistoryDoes not smoke. Drinks socially. Works as a language arts teacher in high school. Family HistoryMother 72 hx of hypertensionFather 80 arteriosclerotic heart disease, hypertension and diabetes, CAThree brothers in good health two have Cholesterol(2) Active Medication ListAspirin 81 MG Once DailyHydrochlorothiazide 12.5 MG (TABLET - ORAL) One Daily For Blood PressureAmaryl 4 MG (TABLET - ORAL) One Twice DailyLipitor 40 MG (TABLET - ORAL) Once DailyLisinopril 40 MG (TABLET - ORAL) One Daily For Blood PressureMetformin Hydrochloride 1 GM (TABLET - ORAL) One Bid For DiabetesFarxiga 10 MG TABLET, FILM COATED One DailyOzempic 1MG (4MG/3ML) Inject Once Weekly Adverse Drug Reactions ReviewedPenicillin Rash Vaccination and Immunization(X) 2020- INFLUENZA( ) 2020- COVID MODERNA(X) 2020- COVID BOOSTER MODERNA Surgical [id number] Gastric Banding Preventative Testing( ) 04/20/2024 PSA 0.90 NG/ML 04/20/2025( ) 07/01/2023 Albumin 4.1 G/DL N( ) 02/13/2023 HAIC 7.4( ) 09/10/2022 Micro Albumin 13.0 MG/L N(X) 02/25/2019 Colonoscopy (5 Years) 02/26/2024( ) 01/21/2019 Optometry Social HistoryDoes not smoke. Drinks socially. Works as a language arts teacher in high school. Family HistoryMother 72 hx of hypertensionFather 80 arteriosclerotic heart disease, hypertension and diabetes, CAThree brothers in good health two have Cholesterol(2) Dustin Gonsalez MD [address] [facility], [facility] [address], [place], [address], [place] - [facility] [employer] 10/05/2024 10:40:46
[2025-01-29 06:21] VITALS: BP 109/61; PULSE 74; RESP 16; TEMP 36.4; O2SAT 100
[2025-01-29] MEDS: LACTATED RINGERS 1,000 ML 150 ML IV CONT (06:36)
[2025-01-29 06:55] LABS: Glucose Point of Care 97 mg/dl (65-105)
--- NOTE | 2025-01-29 07:05 | P.PNAN_ITS ---
Anes - Initial Pre Proc Eval Procedure: Operation Date: 01/29/25 07:30 Proposed Procedures p Screening Colonoscopy - Mamadou Flower MD Date/Time: 01/29/25 07:05 Surgeon: Mamadou Flower MD Pre Op Diagnosis: screening colon Patient Data Age: 54 Gender: M Height: 1.8 m Weight: 131 kg Last Vital Signs Temp 36.4 C L 01/29/25 06:21 Pulse 74 01/29/25 06:21 Resp 16 01/29/25 06:21 BP 109/61 01/29/25 06:21 Pulse Ox 100 01/29/25 06:21 O2 Del Method Room Air 01/29/25 06:21 Allergies Allergy/AdvReac Type Severity Reaction Status Date / Time penicillin G Allergy Severe Anaphylaxis Verified 01/29/25 06:20 Home Medications ?Medication ?Instructions ?Recorded ?Confirmed ?Type aspirin 81 mg capsule 81 mg PO DAILY 08/12/24 01/29/25 History atorvastatin 40 mg tablet 40 mg PO DAILY 08/12/24 01/29/25 History dapagliflozin propanediol 10 mg 10 mg PO DAILY 08/12/24 01/29/25 History tablet (Farxiga) glimepiride 4 mg tablet 4 mg PO DAILY 08/12/24 01/29/25 History hydrochlorothiazide 12.5 mg tablet 12.5 mg PO DAILY 08/12/24 01/29/25 History lisinopril 40 mg tablet 40 mg PO DAILY 08/12/24 01/29/25 History metformin 500 mg tablet,extended 2,000 mg PO DAILY 08/12/24 01/29/25 History release 24 hr semaglutide 1 mg/dose (4 mg/3 mL) 1 mg subcut WEEKLY 08/12/24 01/29/25 History subcutaneous pen injector (Ozempic) Laboratory Tests 01/29/25 06:34 POC Capillary Glucose 97 mg/dl (65-105) Patient hx anesthesia problems: none Family hx anesthesia problems: none Results Review: All pre-operative results and documents have been reviewed as part of the pre- operative evaluation. [facility] Past Medical History Medical History (Updated 01/29/25 @ 07:06 by Jordan Coombs MD) Diabetes Hyperlipidemia HTN (hypertension) Morbid obesity Surgical History Surgical History (Updated 01/29/25 @ 07:08 by Jordan Coombs MD) H/O colonoscopy Social History Social History Smokeless tobacco user: chewing tobacco Substance use type: does not use Living arrangements: with family Spiritual care concerns: No Anes - Eval Final PreProcedure Day of Procedure 01/29/25 07:05 Patient weight: morbidly obese Heart: regular rate and rhythm Lungs: clear to auscultation Airway: Mallampati scale class II Neurological: alert and oriented Last oral intake: >/= 8 hours ASA classification: II Emergent: no Anesthetic plan: proceed Anesthesia type and monitoring: general GIVS and standard monitoring Results Review: All pre-operative results and documents have been reviewed as part of the pre- operative evaluation. Informed Consent: The patient's anesthetic plan and its attendant risks and benefits were dis cussed with the patient/family/POA. Questions were solicited and answers provided to the satisfaction of the patient/family/POA.
--- NOTE | 2025-01-29 07:35 | PM.HPGS ---
History of Present Illness History of Present Illness Consent: Risks, benefits, and alternatives have been discussed and questions answered. Patient agrees to proceed with procedure. Chief complaint: screening colon Narrative: Cam Baxter is a 54 year old male with last colonoscopy 3 years ago, mother had colon cancer Review of Systems Review of Systems: All systems reviewed & are unremarkable except as noted in HPI and below PMFSH Past Medical History Medical History (Updated 01/29/25 @ 07:36 by Mamadou Flower MD) Family history of colon cancer in mother Diabetes Hyperlipidemia HTN (hypertension) Morbid obesity Surgical History Surgical History (Updated 01/29/25 @ 07:08 by Jordan Coombs MD) H/O colonoscopy Social History Social History Smokeless tobacco user: chewing tobacco Substance use type: does not use Living arrangements: with family Spiritual care concerns: No Meds Home Medications and Allergies Home Medications ?Medication ?Instructions ?Recorded ?Confirmed ?Type aspirin 81 mg capsule 81 mg PO DAILY 08/12/24 01/29/25 History atorvastatin 40 mg tablet 40 mg PO DAILY 08/12/24 01/29/25 History dapagliflozin propanediol 10 mg 10 mg PO DAILY 08/12/24 01/29/25 History tablet (Farxiga) glimepiride 4 mg tablet 4 mg PO DAILY 08/12/24 01/29/25 History hydrochlorothiazide 12.5 mg tablet 12.5 mg PO DAILY 08/12/24 01/29/25 History lisinopril 40 mg tablet 40 mg PO DAILY 08/12/24 01/29/25 History metformin 500 mg tablet,extended 2,000 mg PO DAILY 08/12/24 01/29/25 History release 24 hr semaglutide 1 mg/dose (4 mg/3 mL) 1 mg subcut WEEKLY 08/12/24 01/29/25 History subcutaneous pen injector (Ozempic) Allergies Allergy/AdvReac Type Severity Reaction Status Date / Time penicillin G Allergy Severe Anaphylaxis Verified 01/29/25 06:20 Vital Signs Vital Signs - 24 hr 01/29/25 06:21 Temperature 97.5 F L Pulse Rate 74 Respiratory Rate 16 Blood Pressure 109/61 Pulse Oximetry 100 Oxygen Delivery Room Air Exam Const: General: comfortable and no acute distress HENMT: Face/Nose/Sinus: Normal nares present Eyes: General: appearance normal, both eyes and all related structures Neck: Neck: no JVD Resp: Auscultation: clear to auscultation bilaterally Cardio: Rate: regular rate Rhythm: regular rhythm GI: Inspection: non-distended GI Palp: Yes Soft to palpation Skin: General skin exam: normal color Neuro: General: gait normal Speech: normal speech Extrem: General: normal to inspection Psych: Mental Status: mental status grossly normal Assessment and Plan Assessment and plan (1) Family history of colon cancer in mother: Code(s): Z80.0 - Family history of malignant neoplasm of digestive organs Status: Acute Assessment and Plan: colonoscopy
--- NOTE | 2025-01-29 07:50 | S_PTH ---
PATIENT: Cam Baxter LOC: [facility]#:[id number] AGE/SX: 54/M ROOM: RE01/29/[address]: Mamadou Flower MD : 1970 BED: DIS: 01/29/2025 SPEC #: [id number] RECD: 01/29/25 09:35 STATUS: ADRIAN RE #: [id number] ALE: 01/29/25 07:[address]: Mamadou Flower DEPT: [facility] Surgical RECD BY: Praveena Blandon ENTERED: 01/29/25 09:36 SP TYPE: Surgical OTHR DR: Dustin Gonsalez, Tissues: A - Colon Polypectomy Procedures: Hematoxylin and Eosin Stain Gross and Microscopic Level 4
[2025-01-29 07:53] VITALS: BP 79/42; PULSE 76; RESP 18; O2SAT 98
[2025-01-29 07:58] VITALS: BP 94/56
[2025-01-29 08:03] VITALS: BP 91/56; PULSE 74; RESP 20; O2SAT 97
[2025-01-29 08:13] VITALS: BP 100/55; PULSE 72; RESP 16; O2SAT 97
== END 2025-01-29 08:27 | disposition home or self-care (01) ==
PROVIDERS: PCP Internal Medicine; Visit Provider Internal Medicine Gastroenterology
PROC: 0DJD8ZZ Inspection of Lower Intestinal Tract, Via Natural or Artificial Opening Endoscopic (ICD-10-PCS; CPT 45378; principal; 2025-01-29 07:30)
DX: Z12.11 Encounter for screening for malignant neoplasm of colon (principal); D12.3 Benign neoplasm of transverse colon; K63.5 Polyp of colon; Z80.0 Family history of malignant neoplasm of digestive organs; E11.9 Type 2 diabetes mellitus without complications; F17.220 Nicotine dependence, chewing tobacco, uncomplicated; E66.01 Morbid (severe) obesity due to excess calories; Z68.41 Body mass index [BMI] 40.0-44.9, adult
CPT/HCPCS: 45385; 82948; 88305; J2704; J7120